=== PATIENT | female | born 1950 | race Caucasian/White ===

== ENCOUNTER → 2019-11-06 14:43 | Outpatient (CLI) | payer MEDICARE, SELFPAY ==
--- NOTE | ~2019-11-06 | MM_ITS ---
EXAMINATION: MM screening caden BI w domitila HISTORY: Screening mammogram TECHNIQUE: Craniocaudal and mediolateral oblique 3-D tomosynthesis images were obtained and synthetic 2-D images were generated. CAD analysis was submitted and interpreted. COMPARISON: Comparison to multiple prior studies sequentially, with oldest reviewed study dated 06/21. BREAST PARENCHYMAL COMPOSITION: There are scattered areas of fibroglandular density. FINDINGS: There is no evidence of suspicious mass, calcification, or architectural distortion to sugg est malignancy in either breast. There has been no suspicious interval change. IMPRESSION: 1. No mammographic evidence of malignancy. 2. Recommend routine screening mammography in one year. BI-RADS Category 1: Negative Reviewed, dictated and finalized at location D.
== END ==
PROVIDERS: PCP Internal Medicine; Visit Provider Internal Medicine
DX: Z12.31 Encounter for screening mammogram for malignant neoplasm of breast (principal)
CPT/HCPCS: 77063; 77067

== ENCOUNTER → 2020-06-09 10:27 | Outpatient (REF) | payer MEDICARE, SELFPAY | LOC: ANHLAB 10:27 | PROVIDERS: PCP Internal Medicine; Visit Provider Nurse Practitioner | DX: C44.612 Basal cell carcinoma of skin of right upper limb, including shoulder (principal) | CPT/HCPCS: 88305 ==

== ENCOUNTER 2020-10-27 14:28 | Outpatient (CLI) | payer MEDICARE, SELFPAY | END 2020-10-27 14:29 | disposition home or self-care (01) | LOC: ANHCOVIDVC 14:28 | PROVIDERS: PCP Internal Medicine | DX: Z23 Encounter for immunization (principal) | CPT/HCPCS: 0001A; 91300 ==

== ENCOUNTER 2020-11-17 14:27 | Outpatient (CLI) | payer MEDICARE, SELFPAY | END 2020-11-17 14:28 | disposition home or self-care (01) | LOC: ANHCOVIDVC 14:27 | PROVIDERS: PCP Internal Medicine | DX: Z23 Encounter for immunization (principal) | CPT/HCPCS: 0002A; 91300 ==

== ENCOUNTER → 2020-12-01 10:17 | Outpatient (REF) | payer MEDICARE, SELFPAY | LOC: ANHLAB 10:17 | PROVIDERS: PCP Internal Medicine; Visit Provider Nurse Practitioner | DX: D49.2 Neoplasm of unspecified behavior of bone, soft tissue, and skin (principal) | CPT/HCPCS: 88305 ==

== ENCOUNTER → 2021-01-04 08:08 | Outpatient (REF) | payer MEDICARE, SELFPAY | LOC: ANHLAB 08:08 | PROVIDERS: PCP Internal Medicine; Visit Provider Nurse Practitioner | DX: C44.719 Basal cell carcinoma of skin of left lower limb, including hip (principal) | CPT/HCPCS: 88305; 88331 ==

== ENCOUNTER 2021-12-13 13:49 | Outpatient (CLI) | payer MEDICARE, SELFPAY ==
--- NOTE | ~2021-12-13 | XR_ITS ---
[id number] DATE: 12/13/2021 14:19 INDICATION: Injury TECHNIQUE: 4 weightbearing views COMPARISON: None FINDINGS: There is diffuse osteopenia. There is mild plantar and posterior calcaneal enthesopathy. There is hallux valgus. Status post bunionectomy. There is organized periosteal reaction along the shafts of the third and particularly fourth metatars al bones. Old healed fracture of the proximal phalanx of fourth toe. No recent fracture or dislocation, periosteal reaction or bone destruction is noted. Moderate osteoarthritis at first metatarsophalangeal joint. Osteoarthritis at tarsal and tarsometatar ginger joints. IMPRESSION: Hallux valgus Status post bunionectomy Osteopenia Old healed fracture proximal fillings of fourth digit Probable chronic stress fractures of the third and fourth metatarsal bones Osteopenia Osteoarthritis at first metatarsophalangeal and metatarsal and tarsometatarsal joints Reviewed, dictated and finalized at Location A. Reviewed, dictated and finalized at location A.
--- NOTE | ~2021-12-13 | XR_ITS ---
XR ankle RT min 3V DATE: 12/13/2021 14:18 INDICATION: Right ankle injury, swelling TECHNIQUE: 4 views COMPARISON: None FINDINGS: There is generalized soft tissue swelling, greater medially. Diffuse osteopenia. No fracture or dislocation of the ankle or disruption of the ankle mortise. There is a K wire at the distal first metatarsal bone. Osteoarthritic changes are noted at the tarsal and tarsometatarsal area. IMPRESSION: Ankle soft tissue swelling; no fracture or dislocation of the ankle Osteoarthritic change at the tarsal and tarsometatarsal joints Postoperative change of first metatarsal Reviewed, dictated and finalized at location A.
== END 2021-12-13 13:50 | disposition home or self-care (01) ==
LOC: CHSIMG 13:51
PROVIDERS: PCP Internal Medicine; Visit Provider Internal Medicine
DX: M25.471 Effusion, right ankle (principal)
CPT/HCPCS: 73610; 73630

== ENCOUNTER 2022-01-14 09:13 | Outpatient (CLI) | payer MEDICARE, SELFPAY ==
--- NOTE | ~2022-01-14 | US_ITS ---
EXAMINATION: US venous doppler [facility] DATE: 01/14/2022 11:34 INDICATION: Lower limb lymphedema with bilateral lower limb venous reflux. TECHNIQUE: Grayscale ultrasound images without and with compression and Doppler ultrasound images of the bilateral lower extremity veins were obtained. COMPARISON: None. FINDINGS: The visualized portions of right common femoral vein, profunda (deep) femoral vein, femoral vein, pop liteal vein, posterior tibial veins, peroneal veins and greater saphenous vein outflow are patent. Right standing venous mapping: reflux seconds duration; vein size. Greater saphenous origin: 1.0 seconds; 6.0 mm. Greater saphenous high thigh:---- 1.6 seconds; 4.5 mm. Greater saphenous mid thigh:------ 0.7 seconds; 3.0 mm. Greater saphenous below knee:--- 2.4 seconds; 2.0 mm. Lesser saphenous proximally:------ 0.8 seconds; 3.7 mm. Lesser saphenous distally: 1.1 seconds; 2.6 mm. The visualized portions of left common femoral vein, profunda femoral vein, femoral vein, popliteal v ein, posterior tibial veins, peroneal veins and greater saphenous vein outflow are patent. Left standing venous mapping: reflux seconds duration; vein size. Greater saphenous origin: 1.4 seconds; 5.7 mm. Greater saphenous high thigh:---- 1.6 seconds; 3.4 mm. Greater saphenous mid thigh:------ 1.2 seconds; 2.2 mm. Greater saphenous below knee:--- 1.9 seconds; 3.5 mm. Lesser saphenous proximally:------ 0.9 seconds; 3.1 mm. Lesser saphenous distally: 2.1 seconds; 2.6 mm. IMPRESSION: 1. No deep venous thrombosis in either lower limb. 2. Mild venous reflux in the bilateral greater and lesser saphenous veins, all with durations of <2.5 seconds. Reviewed, dictated and finalized at location B.
== END 2022-01-14 09:14 | disposition home or self-care (01) ==
PROVIDERS: PCP Internal Medicine; Visit Provider Orthopaedic Surgery
DX: I89.0 Lymphedema, not elsewhere classified (principal); M79.89 Other specified soft tissue disorders
CPT/HCPCS: 93970

== ENCOUNTER → 2023-03-24 11:16 | Outpatient (CLI) | payer MEDICARE, SELFPAY ==
--- NOTE | ~2023-03-24 | US_ITS ---
Renal-Bladder ultrasound Clinical History: Abnormal findings of blood chemistry Technique: Real-time sonographic imaging of the kidneys and urinary bladder was performed. Findings: The right kidney measures 10.0 cm in length and the left kidney measures 11.2 cm. There is no hydronephrosis or renal calculus identified. Renal cortical echogenicity is probably increased. No renal mass lesion is identified. The urinary bladder is partially distended at the time of this exam. No intraluminal echoes are ident ified. No abnormal wall thickening is seen. Impression: Increased renal echogenicity suggest chronic medical renal disease. No hydronephrosis. Reviewed, dictated and finalized at location M. Impression: Increased renal echogenicity suggest chronic medical renal disease. No hydronephrosis.
== END ==
PROVIDERS: PCP Internal Medicine; Visit Provider Internal Medicine
DX: R79.89 Other specified abnormal findings of blood chemistry (principal); R93.429 Abnormal radiologic findings on diagnostic imaging of unspecified kidney
CPT/HCPCS: 76775

== ENCOUNTER 2023-08-02 16:54 | Emergency (ER) | payer MEDICARE, SELFPAY ==
--- NOTE | ~2023-08-02 | XR_ITS ---
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 RESULT: Lines, tubes, and devices: None. Lungs and pleura: Lordotic positioning with slight rotation to the right. Prominent pulmonary vessel s. No focal consolidation, pneumothorax, or effusion. Streaky bibasilar atelectasis/scar. Cardiomediastinal silhouette: Apparent mediastinal widening, presumably related to artifact of posit ioning, this is confirmed by the appearance of the superior mediastinum and aortic arch and the concu rrent CT C-spine. Other: No acute osseous or upper abdominal finding. IMPRESSION: Letter congestion, otherwise no acute cardiopulmonary process. Apparent mediastinal widening is related to positioning/technique. Reviewed, dictated and finalized at location K. ERLESS GRINDING MACHINE ADJUSTER
--- NOTE | ~2023-08-02 | CT_ITS ---
EXAMINATION: CT facial & cervical spine wo DATE: 08/02/2023 18:01 INDICATION: FALL/RIGHT FORHEAD CONTUSION/NO CERVICAL COMPLAINTS TECHNIQUE: Computed tomography (CT) of the maxillofacial region and cervical spine was performed with out intravenous contrast. Automated exposure control and iterative reconstruction technique were empl oyed. The dose-length product was 587.99 mGy-cm. COMPARISON: None FINDINGS: CERVICAL: Vertebral Body Alignment: Intact. Moderate scoliosis. Craniocervical and atlantoaxial alignment: Moderate degenerative change. Alignment intact. Osseous structures/fracture: No evidence of a lytic or blastic process in the visualized spine. No e vidence of acute fracture. Left facet fusion at C2-3 and C4-5. Cervical soft tissues: The paraspinal soft tissues planes are maintained. Degenerative changes: Moderate multilevel degenerative disc disease. No severe central canal narrowin g. Severe left neural foraminal narrowing at C3-4. FACE: Soft Tissues: Large right frontal/orbital soft tissue swelling. Facial bones: No acute fracture. Small right frontal osteoma.. Eyes: The globes are intact. The soft tissue planes of the orbits are maintained. Paranasal Sinuses: Small volume left maxillary sinus air-fluid level. Trace bilateral mastoid fluid without erosion or fracture.. Foreign Bodies: No radiopaque foreign bodies. Other Findings: None. IMPRESSION: No acute fracture or traumatic malalignment in the cervical spine. No acute facial bone fracture. Large right frontal/orbital hematoma/contusion. Minimal left maxillary mucosal hemorrhage versus acute sinusitis. Reviewed, dictated and finalized at location K. ING APPAREL FOLDER
--- NOTE | ~2023-08-02 | XR_ITS ---
EXAM: XR pelvis 1-2V DATE: 08/02/2023 18:02 HISTORY: FALL/NO HIP, PELVIS OR LOWER BACK COMPLAINTS . COMPARISON: None available. FINDINGS: Normal mineralization. No fracture or dislocation. No lytic or blastic lesion. Lumbar dege nerative disc disease. Mild degenerative changes in the bilateral hips and symphysis. 7 mm right abdo pippa calcification, may represent gallstone, nephrolith, or diverticular calcification. No erosion o r periosteal change. Soft tissues within normal limits. IMPRESSION: No acute osseous finding in the pelvis. Reviewed, dictated and finalized at location K. CTOR OF PRECLINICAL RESEARCH
--- NOTE | ~2023-08-02 | CT_ITS ---
EXAMINATION: CT brain wo con DATE: 08/02/2023 18:00 INDICATION: FALL/RIGHT FORHEAD CONTUSION . TECHNIQUE: Computed tomography (CT) of the head was performed without intravenous contrast. The mA wa s adjusted according to patient size. Iterative reconstruction technique was employed. The dose-lengt h product was 756.67 mGy-cm. COMPARISON: MR brain 08/24/2017. FINDINGS: No acute intracranial hemorrhage or extra-axial fluid collection. Streak artifact in the right fronta l lobe creates artifactual hyperdensities over the right frontal lobe. Moderate ventriculomegaly, most notably within the frontal horns, new since the prior study. No mass or herniation. No acute ischemic infarct. Unremarkable dural venous sinus attenuation. No acute osseous abnormality. Large right frontal and right orbital hematoma/contusion. Small left maxillary air-fluid level, mild bilateral mastoid air cell fluid, the remaining aerated sp aces are clear. Moderate atrophy and chronic white matter change. Atherosclerotic intracranial calcification. Bilater al lens replacements. IMPRESSION: No acute intracranial hemorrhage or large vessel infarct. Moderate ventriculomegaly, new since the prior study from 2017, probably related to interval dementia or age-related change. Correlate for clinical findings of normal pressure hydrocephalus. Large right frontal/right orbital hematoma/contusion. Small-volume air-fluid level in the left maxillary sinus may represent acute sinusitis or small volum e mucosal hemorrhage in the setting of trauma. Reviewed, dictated and finalized at location K. L FITTER IMPRESSION: No acute intracranial hemorrhage or large vessel infarct. Moderate ventriculomegaly, new since the prior study from 2017, probably relate d to interval dementia or age-related change. Correlate for clinical findings o f normal pressure hydrocephalus. Large right frontal/right orbital hematoma/contusion. Small-volume air-fluid level in the left maxillary sinus may represent acute si nusitis or small volume mucosal hemorrhage in the setting of trauma.
[2023-08-02 16:54] VITALS: BP 173/78; PULSE 69; RESP 20; TEMP 35.9; O2SAT 100
--- NOTE | 2023-08-02 17:10 | ED.FALL ---
HPI - Fall General Chief Complaint: Fall Stated Complaint: fall, head injury Source: patient and family Mode of arrival: ambulatory Limitations: no limitations History of Present Illness HPI Narrative: 72-year-old female with a history of Alzheimer's dementia, arthritis, CKD, lymphedema bilateral lower extremities, arthritis, venous stasis changes of the legs presents to the ER after -- accidental fall 4 hours ago. She fell and hit her forehead on the driveway and developed a right supraorbital hematoma. No loss of consciousness according to . Subsequently the patient went back home. She was ambulatory. Her called her primary care physician who advised the patient to come to the ER. The patient has dementia and is unable to answer questions. no focal neuro deficits. No vomiting MD complaint: fall Onset (ago): hour(s) ( 4 hours ago) Fall from: standing Fall witnessed: no Place fall occurred: home Loss of consciousness: none Prolonged down time: no Symptoms prior to fall: none Context: tripped/slipped Location of injury: head Related Data Home Medications Medication Instructions Recorded Confirmed aspirin 81 mg tablet,delayed 81 mg PO DAILY 06/09/20 07/26/23 release (Ecotrin Low Strength) Allergies Allergy/AdvReac Type Severity Reaction Status Date / Time RASHAUN Inhibitors Allergy Unknown Hives Verified 07/26/23 13:10 ibuprofen Allergy Unknown unknown Verified 07/26/23 13:10 irbesartan Allergy Unknown Unknown Verified 07/26/23 13:10 lisinopril Allergy Unknown Unknown Verified 07/26/23 13:10 olmesartan Allergy Unknown unknown Verified 07/26/23 13:10 Review of Systems Review of Systems: ROS unobtainable: Yes unobtainable due to mental status PMFSH Past Medical History Medical History Abnormal finding of blood chemistry Agatston coronary artery calcium score between 200 and 399 Alzheimer's disease Bleeding gums BMI 30.0-30.9,adult BMI 31.0-31.9,adult BMI 32.0-32.9,adult BMI 33.0-33.9,adult BMI 34.0-34.9,adult BMI 35.0-35.9,adult BMI 36.0-36.9,adult Bradycardia Chest pain CKD (chronic kidney disease) Colon cancer screening Dementia Effusion of right knee Encounter for Medicare annual wellness exam Encounter for routine adult health examination with abnormal findings Encounter for routine adult health examination without abnormal findings Fall Fracture of right ankle Lymphedema due to venous insufficiency Mass of right hand Mild depression Onychomycosis Osteoarthritis of right knee Other specified abnormal findings of blood chemistry Pedal edema Rash Rhinorrhea Right shoulder pain Venous stasis dermatitis Weakness of both lower extremities Surgical History Surgical History History of eyelid surgery 2014 History of foot surgery 2018 Hx of cataract surgery S/P YAG capsulotomy, left Status post left foot surgery Family History Family History Mother Family history of lung cancer Patient's mother is in good health Father Family history of emphysema Family history of aortic aneurysm Other Acute myocardial infarction Hypertension Social History Social History Smoking status: Former smoker Smoking end date: 08/21/07 Alcohol intake: never Substance use: never Substance use type: does not use Lack of Transportation: No Lack of Food: Never True Current Housing: I Have Housing Concerned About Future Housing: No Difficulty Paying Gas/Electric Bills: No Difficulty Paying for Meds: No Currently Unemployed: No Education: Grade School Difficulty w/ Childcare or Family Care: No Living arrangements: with family Gender identity (if verbalized by the patient): Female Exam Const: General: healthy appearing and no acute
[2023-08-02] MEDS: TETANUS,DIPHTHERIA,AC PERTUSSIS ADULT 0.5 ML (ADACEL) IM (17:59)
[2023-08-02 18:37] VITALS: BP 138/74; PULSE 68; RESP 20; TEMP 36.9; O2SAT 98
== END 2023-08-02 18:51 | disposition home or self-care (01) ==
PROVIDERS: Emergency Provider Internal Medicine Critical Care Medicine; PCP Internal Medicine
DX: G93.89 Other specified disorders of brain (principal); S00.03XA Contusion of scalp, initial encounter; G30.9 Alzheimer's disease, unspecified; F02.80 Dementia in other diseases classified elsewhere, unspecified severity, without behavioral disturbance, psychotic disturbance, mood disturbance, and anxiety; N18.9 Chronic kidney disease, unspecified; Z87.891 Personal history of nicotine dependence; Z23 Encounter for immunization; W01.0XXA Fall on same level from slipping, tripping and stumbling without subsequent striking against object, initial encounter; Y92.009 Unspecified place in unspecified non-institutional (private) residence as the place of occurrence of the external cause
CPT/HCPCS: 70450; 70486; 71045; 72125; 72170; 90471; 90715; 99284

== ENCOUNTER 2023-09-07 15:29 | Outpatient (CLI) | payer MEDICARE, SELFPAY ==
--- NOTE | ~2023-09-07 | MR_ITS ---
EXAMINATION: MR brain/brain stem wo/w con DATE: 09/07/2023 17:20 INDICATION: Amnesia post fall one month prior TECHNIQUE: Magnetic resonance imaging (MRI) of the brain and brainstem was performed without and with 18 mL Multihance intravenous contrast. Sequences included sagittal and axial T1-weighted SE, axial d iffusion-weighted FS SE, axial T2*-weighted GRE, axial 3D SWAN, axial T2-weighted FLAIR, and axial T2 -weighted FSE. Postcontrast axial and coronal T1-weighted SE was obtained. Apparent diffusion coeffic ient (ADC) maps were created. COMPARISON: Head CT dated 08/02/2023 and brain MR dated 08/24/2017 FINDINGS: Significant interval decrease in size of a scalp hematoma in the right supraorbital region. There are no areas of restricted diffusion to suggest acute infarction. No intracranial hemorrhage or abnormal intracranial mass lesion. There are scattered areas of nonspecific increased T2-weighted signal inte nsity in the cerebral white matter, predominantly involving the deep and periventricular white matter . There are no intraparenchymal signal abnormalities seen on the other pulse sequences. Symmetric pro minence of the sulci and ventricles consistent with moderate age-appropriate diffuse cerebral volume loss. There are no abnormal extra-axial fluid collections. Flow voids are seen in the cerebral arteri es on the T2-weighted sequences consistent with their expected patency. Changes of bilateral intraocu lar lens replacement. Visualized orbits and soft tissues are unremarkable. Chronic small bilateral ma stoid effusions. There are no areas of abnormal enhancement on the post contrast images. IMPRESSION: 1. No acute intracranial process or abnormally enhancing brain lesions. 2. Age-related changes including moderate diffuse volume loss and scattered foci of periventricular p redominant white matter T2 hyperintensity consistent with chronic small vessel ischemic disease. 3. Interval decrease in size of a right supraorbital scalp hematoma. Reviewed, dictated and finalized at location A. RAL RESOURCES TECHNICIAN IMPRESSION: 1. No acute intracranial process or abnormally enhancing brain lesions. 2. Age-related changes including moderate diffuse volume loss and scattered foc i of periventricular predominant white matter T2 hyperintensity consistent with chronic small vessel ischemic disease. 3. Interval decrease in size of a right supraorbital scalp hematoma.
== END 2023-09-07 15:30 | disposition home or self-care (01) ==
PROVIDERS: PCP Internal Medicine; Visit Provider Internal Medicine
DX: R90.89 Other abnormal findings on diagnostic imaging of central nervous system (principal); R41.3 Other amnesia
CPT/HCPCS: 70553; A9577

== ENCOUNTER 2023-09-17 14:00 | Emergency (ER) | payer MEDICARE, SELFPAY ==
[2023-09-17] VITALS (21 sets, daily range): BP systolic 85–141; BP diastolic 52–70; PULSE 67–108; RESP 12–20; TEMP 35.9–36.9; O2SAT 92–100
--- NOTE | ~2023-09-17 | XR_ITS ---
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 RESULT: Lines, tubes, and devices: None. Lungs and pleura: Leftward rotation in the frontal view. Mild diffuse reticular opacities. Streaky bi basilar opacities, likely scar/atelectasis. Senescent changes. Cardiomediastinal silhouette: Stable. Other: No acute osseous or upper abdominal finding. IMPRESSION: Mild interstitial edema. Reviewed, dictated and finalized at location K. TER STATION OPERATOR IMPRESSION: Mild interstitial edema.
--- NOTE | ~2023-09-17 | CT_ITS ---
EXAMINATION: CT brain wo con DATE: 09/17/2023 15:50 INDICATION: weakness . TECHNIQUE: Computed tomography (CT) of the head was performed without intravenous contrast. The mA wa s adjusted according to patient size. Iterative reconstruction technique was employed. The dose-lengt h product was 681.00 mGy-cm. COMPARISON: None. FINDINGS: No acute intracranial hemorrhage or extra-axial fluid collection. No hydrocephalus, mass, or herniation. No acute ischemic infarct. Unremarkable dural venous sinus attenuation. No acute osseous abnormality. Small right frontal contusion. Minimal bilateral mastoid fluid, the remaining aerated spaces are clear. Moderate atrophy and chronic white matter change. Atherosclerotic intracranial calcification. Bilater al lens replacements. IMPRESSION: No acute intracranial process. Reviewed, dictated and finalized at location K. NICAL SUPPORT CONSULTANT
--- NOTE | 2023-09-17 14:14 | ECG_ITS ---
Measurements Intervals [place] Rate: 86 P: 82 CO: 100 QRS: 15 QRSD: 110 T: 40 QT: 383 QTc: 460 Interpretive Statements SINUS RHYTHM WITH SHORT CO INTERVAL DELAYED PRECORDIAL R/S TRANSITION NONSPECIFIC T-WAVE ABNORMALITY- DIFFUSE LEADS BASELINE ARTIFACT- I, II, III, AVR, AVL, AVF, V1-V6 BORDERLINE ECG NO PREVIOUS ECG AVAILABLE FOR COMPARISON Electronically Signed On 09-17-2023 19:31:16 PHARMACY BILLING ADJUDICATOR by Arjun Mendes D.O.
--- NOTE | 2023-09-17 14:48 | ED.WEAKNESS ---
HPI - Weakness General Chief complaint: Weakness Stated complaint: unsteady on feet; decreased intake and output Time Seen by Provider: 09/17/23 14:10 Source: patient Mode of arrival: ambulatory Limitations: no limitations History of Present Illness HPI Narrative: Patient is a 72-year-old female with baseline dementia here with worst dementia /delirium over the past few days. They feel she is dehydrated. MD Complaint: generalized weakness Onset (ago): day(s) (3) Duration: constant Location: generalized Migration: none Severity: moderate Severity scale (1-10): 4 Relieving factors: none Exacerbating factors: none Associated symptoms: denies other symptoms Related Data Home Medications Medication Instructions Recorded Confirmed aspirin 81 mg tablet,delayed 81 mg PO DAILY 06/09/20 07/26/23 release (Ecotrin Low Strength) Allergies Allergy/AdvReac Type Severity Reaction Status Date / Time RASHAUN Inhibitors Allergy Unknown Hives Verified 09/05/23 11:05 ibuprofen Allergy Unknown unknown Verified 09/05/23 11:05 irbesartan Allergy Unknown Unknown Verified 09/05/23 11:05 lisinopril Allergy Unknown Unknown Verified 09/05/23 11:05 olmesartan Allergy Unknown unknown Verified 09/05/23 11:05 Review of Systems Review of Systems: All systems reviewed & are unremarkable except as noted in HPI and below Constitutional: Constitutional: Reports no additional constitutional complaints Eyes: Eyes: Reports no additional eye complaints ENT: Reports system reviewed and no additional complaints, except as documented Cardiovascular: Cardiovascular: Reports no additional cardiovascular complaints Respiratory: Respiratory: Reports no additional respiratory complaints Gastrointestinal: Gastrointestinal: Reports no additional gastrointestinal complaints Genitourinary: Genitourinary: Reports no additional female genitourinary complaints Musculoskeletal: Musculoskeletal: Reports no additional musculoskeletal complaints Integumentary/Breasts: Skin/Breast: Reports system reviewed and no additional complaints, except as docu Neurologic: Reports system reviewed and no additional complaints, except as documented Psychiatric: Psychiatric: Reports no additional psychiatric complaints Endocrine: Endocrine: Reports no additional endocrine complaints Hematologic/Lymphatic: Hematologic/Lymphatic: Reports no additional hematologic/lymphatic complaints Allergic/Immunologic: Allergic/Immunologic: Reports no additional allergic/immunologic complaints PMFSH Past Medical History Medical History Abnormal finding of blood chemistry Agatston coronary artery calcium score between 200 and 399 Alzheimer's disease Bleeding gums BMI 30.0-30.9,adult BMI 31.0-31.9,adult BMI 32.0-32.9,adult BMI 33.0-33.9,adult BMI 34.0-34.9,adult BMI 35.0-35.9,adult BMI 36.0-36.9,adult Bradycardia Chest pain CKD (chronic kidney disease) Colon cancer screening Dementia Effusion of right knee Encounter for Medicare annual wellness exam Encounter for routine adult health examination with abnormal findings Encounter for routine adult health examination without abnormal findings Fall Fracture of right ankle Lymphedema due to venous insufficiency Mass of right hand Mild depression Onychomycosis Osteoarthritis of right knee Other specified abnormal findings of blood chemistry Pedal edema Rash Rhinorrhea Right shoulder pain Venous stasis dermatitis Weakness of both lower extremities Surgical History Surgical History History of eyelid surgery 2013 History of foot surgery 2018 Hx of cataract surgery S/P YAG capsulotomy, left Status post left foot surgery Family History Family History Mother Family history of lung cancer Patient's mother is in good health Father Family history of emphysema F
[2023-09-17 15:11] LABS: Basophils Absolute Auto 0.04 K/mm3 (0.00-0.10); Basophils Percent Auto 0.6 % (0.0-1.0); Eosinophils Absolute Auto 0.03 K/mm3 (0.02-0.50); Eosinophils Percent Auto 0.4 % (1.0-6.0); Hematocrit 40.6 % (35.0-42.0); Hemoglobin 11.8 g/dL (11.7-13.8); Immature Granulocyte Absolute 0.03 K/mm3 (0.00-0.00); Immature Granulocyte Percent A 0.4 % (0.0-0.0); Lymphocytes Absolute Auto 0.89 K/mm3 (1.10-4.50); Mean Corpuscular HGB Conc 29.1 g/dL (32.0-36.0); Mean Corpuscular Hemoglobin 28.9 pg (27.0-31.0); Mean Corpuscular Volume 99.5 fL (78.0-102.0); Mean Platelet Volume 9.5 fl (9.2-11.8); Monocytes Absolute Auto 0.52 K/mm3 (0.10-0.90); Monocytes Percent Auto 7.6 % (2.0-11.0); Neutrophils Absolute Auto 5.3 K/mm3 (1.7-7.2); Platelet Count Result 189 K/mm3 (150-420); Red Blood Count 4.08 M/mm3 (4.20-5.40); Red Cell Distribution Width 13.4 % (11.6-14.4); White Blood Count 6.8 K/mm3 (4.8-10.8)
[2023-09-17 15:30] LABS: Alanine Aminotransferase 16 U/L (14-59); Albumin Level 2.8 g/dL (3.4-5.0); Alkaline Phosphatase 85 U/L (46-116); Anion Gap 11 mmol/L (8-16); Aspartate Amino Transferase 17 U/L (15-37); Bilirubin,Total 0.7 mg/dL (0.00-1.00); Blood Urea Nitrogen 17 mg/dL (7-18); Carbon Dioxide 26 mmol/L (21-32); Chloride 105 mmol/L (98-108); Estimated Glomerular Filt Rate 33; Glucose 104 mg/dL (70-99); Magnesium 1.9 mg/dL (1.8-2.4); Osmolality Calculated 295 mOsm/kg (285-295); Potassium 3.5 mmol/L (3.5-5.1); Sodium 142 mmol/L (136-145); Total Protein 6.4 g/dL (6.4-8.2); Troponin I 18.7 ng/L (0.00-60.4)
[2023-09-17 15:35] LABS: Lactic Acid Reflex 1.4 mmol/L (0.4-2.0)
[2023-09-17] MEDS: SODIUM CHLORIDE 0.9% IV 1,000 ML 999 ML IV CONT (16:00)
[2023-09-17 16:26] LABS: NT Pro B Type Natriuretic Pept 304 pg/mL (0-125)
[2023-09-17 16:43] LABS: SARS-CoV-2 RNA PCR Negative (Negative)
[2023-09-17 16:44] LABS: Influenza A QL RT-PCR Negative (Negative); Influenza B QL RT-PCR Negative (Negative); RSV RNA, RT-PCR Negative (Negative)
[2023-09-17 17:44] LABS: Bilirubin Urine Negative (Negative); Blood Urine Negative (Negative); Color Urine Yellow (Yellow); Glucose Urine UA Negative (Negative); Ketones Urine Negative (Negative); Leukocyte Esterase Ur Negative LEU/UL (Negative); Nitrate Urine Negative (Negative); Protein Urine Negative (Negative); Specific Grav Ur 1.025 (1.010-1.020)
[2023-09-17 17:46] LABS: Add Urine Microscopic? NO; Appearance Urine Slightly Cloudy (Clear)
== END 2023-09-17 18:23 | disposition home or self-care (01) ==
PROVIDERS: Emergency Provider Emergency Medicine; PCP Internal Medicine
DX: N17.9 Acute kidney failure, unspecified (principal); E86.0 Dehydration; R53.1 Weakness; G30.9 Alzheimer's disease, unspecified; F02.80 Dementia in other diseases classified elsewhere, unspecified severity, without behavioral disturbance, psychotic disturbance, mood disturbance, and anxiety; N18.9 Chronic kidney disease, unspecified; F32.A Depression, unspecified; Z87.891 Personal history of nicotine dependence; Z79.82 Long term (current) use of aspirin; Z20.822 Contact with and (suspected) exposure to COVID-19
CPT/HCPCS: 36415; 70450; 71046; 80053; 81003; 83605; 83735; 83880; 84484; 85025; 87637; 93005; 99284; J7030

== ENCOUNTER 2023-12-07 01:21 | Day surgery (SDC) | payer MEDICARE, SELFPAY ==
[2023-11-30 13:21] VITALS: BMI 31.3
--- NOTE | 2023-11-30 13:54 | PC.NURSE ---
Report to the Outpatient Waiting Room, entrance under the green pavilion located off [facility], at time __6:00AM on date __12/07/23 . Planned Procedure Time: __7:30AM . Time changes happen often and if your time is changed the preop area will call you the afternoon before. - You and your visitor will be asked to self-screen and do not enter if you have any COVID symptoms. - A mask is optional within the hospital at this time. Patients may have clear liquids (water, carbonated beverages, clear teas, apple juice) until 3 hours prior to surgery with a maximum of 20 ounces. - No food from midnight until time of surgery. Take the following medications with a SIP of water the morning of surgery: __HYDRALAZINE DO NOT STOP ANY OF YOUR OTHER PRESCRIPTION MEDICATIONS PRIOR TO SURGERY ?EXCEPT THE FOLLOWING Medications to discontinue per physician ___HOLD ALL VITAMINS/SUPPLEMENTS 3 DAYS PRE-OP Date to take last dose____12/03/23 Please no make-up, nail malay, hairspray, perfume, deodorant, or body powder the day of surgery. No jewelry (including any body piercings) or valuables the day of surgery, leave them at home. Please take a shower or bath the night before, or the morning of, surgery with an antibacterial soap. Wear comfortable, loose fitting clothing. Children are encouraged to wear pajamas. - Jewelry must be removed prior to entering the operating room. Rings and piercings that are not removed may be cut off. - The hospital will not accept responsibility for valuables. - Please leave all valuables, including medications, at home the day of surgery. If you are going home after surgery, a licensed vacuum truck driver must drive you home. - NO public transportation without another adult if you receive anesthesia. - We recommend that an adult stay with you for 24 hours following discharge. - We also recommend that you do not drive, make important decision, drink alcoholic beverages, or take any drugs that were not prescribed by your health care provider for at least 24 hours after your discharge time. For Pediatric surgeries, we recommend two adults accompany the child home. Follow any additional instructions given to you from your surgeon. If you or anyone in your household have experienced Covid symptoms in the past week, please notify your surgeon or the nurse liaison at the phone number below for possible testing. Telephone instructions given to ___PATIENT and asked if any additional questions and then verbalized understanding. Patient advised to call surgeon office or pre surgery nurse liaison [phone] if any additional questions.
[2023-12-07] MEDS: LACTATED RINGERS 1,000 ML 30 ML IV CONT (06:30)
--- NOTE | 2023-12-07 07:08 | P.PNAN_ITS ---
Anes - Initial Pre Proc Eval Procedure: Operation Date: 12/07/23 07:30 Proposed Procedures p Excision Squamous Cell Carcinoma Left Dorsal Hand with Frozen Section and Full Thickness Skin Graft - Antonio Garibay MD Date/Time: 12/07/23 07:08 Surgeon: Antonio Garibay MD Pre Op Diagnosis: sq cell CA insitu left dorsal hand Patient Data Age: 72 Gender: F Height: 1.68 m Weight: 88 kg Allergies Allergy/AdvReac Type Severity Reaction Status Date / Time RASHAUN Inhibitors Allergy Unknown Hives Verified 11/30/23 13:14 ibuprofen Allergy Unknown unknown Verified 11/30/23 13:14 irbesartan Allergy Unknown Unknown Verified 11/30/23 13:14 lisinopril Allergy Unknown Hives Verified 11/30/23 13:14 olmesartan Allergy Unknown unknown Verified 11/30/23 13:14 Home Medications Medication Instructions Recorded Confirmed Type aspirin 81 mg tablet,delayed 81 mg PO DAILY 06/09/20 11/30/23 History release (Ecotrin Low Strength) calcium carbonate 600 mg-vitamin 1 tablet PO TID #90 tabs 02/07/22 11/30/23 Rx D3 20 mcg (800 unit) chewable tablet (Caltrate 600 plus D) rosuvastatin 20 mg tablet See Rx Instructions .Route 06/05/23 11/30/23 Rx .COMPLEX #90 tabs hydralazine 50 mg tablet 50 mg PO TID #270 tabs 07/26/23 11/30/23 Rx Bed Rail #1 ea 09/25/23 11/03/23 Rx Gait Belt #1 ea 09/25/23 11/03/23 Rx Shower Seat Cushion #1 ea 09/25/23 11/03/23 Rx Toilet Sear Riser with Handles #1 ea 09/25/23 11/03/23 Rx cyanocobalamin (vitamin B-12) See Rx Instructions .Route 11/28/23 11/30/23 Rx 1,000 mcg/mL injection solution .COMPLEX #6 mL losartan 100 mg tablet 100 mg PO HS 11/30/23 11/30/23 History memantine 10 mg tablet 10 mg PO BID 11/30/23 11/30/23 History omega-3 fatty acids 1,000 mg 1,200 mg PO TID 04/11/24 04/11/24 History capsule Patient hx anesthesia problems: none Family hx anesthesia problems: none Results Review: All pre-operative results and documents have been reviewed as part of the pre- operative evaluation. [facility] Past Medical History Medical History (Updated 11/02/23 @ 15:45 by Ivory Newton MA) Abnormal finding of blood chemistry Agatston coronary artery calcium score between 200 and 399 Alzheimer's disease Bleeding gums BMI 30.0-30.9,adult BMI 31.0-31.9,adult BMI 32.0-32.9,adult BMI 33.0-33.9,adult BMI 34.0-34.9,adult BMI 35.0-35.9,adult BMI 36.0-36.9,adult Bradycardia Chest pain CKD (chronic kidney disease) Colon cancer screening Dementia Effusion of right knee Encounter for Medicare annual wellness exam Encounter for routine adult health examination with abnormal findings Encounter for routine adult health examination without abnormal findings Fall Fracture of right ankle Lymphedema due to venous insufficiency Mass of right hand Mild depression Onychomycosis Osteoarthritis of right knee Other specified abnormal findings of blood chemistry Pedal edema Rash Rhinorrhea Right shoulder pain Venous stasis dermatitis Weakness of both lower extremities Surgical History Surgical History History of eyelid surgery 2014 History of foot surgery 2018 Hx of cataract surgery S/P YAG capsulotomy, left Status post left foot surgery Family History Family History Mother Family history of lung cancer Patient's mother is in good health Father Family history of emphysema Family history of aortic aneurysm Other Acute myocardial infarction Hypertension Social History Social History Smoking status: Former smoker Tobacco type: cigarettes Smoking end date: 02/18/98 Additional smoking assessment comments: 1 PACK/WEEK X 12 YEARS Alcohol intake: never Substance use: never Substance use type: does not use Lack of Transportation: No Lack of Food: Never True Current Housing: I Have Housing Concerned About Future Housing: No Difficulty Paying Gas/Electric Bills: No Difficulty Paying for Meds: No Currently Unemployed: No Education: Grade School Difficulty w/ Childcare or Family Care: No Living arrangements: with family Additional living arrangements comments: HUSB Gender identity (if verbalized by the patient): Female Spiritual care concerns: No Anes - Eval Final PreProcedure Day of Procedure 12/07/23 07:08 Patient weight: normal Heart: regular rate and rhythm Lungs: clear to auscultation Airway: Mallampati scale class III Neurological: alert and oriented Last oral intake: >/= 8 hours ASA classification: III Emergent: no Anesthetic plan: proceed Anesthesia type and monitoring: general GIVS and standard monitoring Results Review: All pre-operative results and documents have been reviewed as part of the pre- operative evaluation. Informed Consent: The patient's anesthetic plan and its attendant risks and benefits were discussed with the patient/family/POA. Questions were solicited and answers provided to the satisfaction of the patient/family/POA.
--- NOTE | 2023-12-07 07:17 | WPDHPUPDATE1 ---
History and Physical Update Update Date/Time: 12/07/23 07:17 History and Physical has been reviewed, including an updated exam of the patient. There are NO changes in the patient's condition. Risks, benefits, and alternatives have been discussed and questions answered. Patient agrees to proceed with procedure.
[2023-12-07] MEDS: LIDO 1%/EPINEPHRINE 1:100,000 50 ML VIAL 20 ML INFILTRATE (07:28)
[2023-12-07 07:46] VITALS: BP 125/58; PULSE 80; RESP 16; TEMP 36.6; O2SAT 100
[2023-12-07 09:50] VITALS: BP 149/68; PULSE 60; RESP 14; O2SAT 100
[2023-12-07 10:20] VITALS: BP 126/66; PULSE 59; RESP 14; O2SAT 97
--- NOTE | 2023-12-07 10:27 | W.PM.PROC2 ---
Procedure Note - Detailed Date of Procedure 12/07/23 Pre-op Diagnosis sq cell CA insitu left dorsal hand Post-op Diagnosis Other (Squamous cell carcinoma of the left dorsal hand) Procedure Performed 5 cm excision of squamous cell carcinoma of the left dorsal hand with frozen section and full-thickness skin graft reconstruction 25 sq cm. 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 Findings Squamous cell carcinoma Description of Procedure The site on the left dorsal hand was marked with the 's consent in the holding area. He has power of litigation attorney associate. Site on the volar forearm was also marked for donor skin. She was then rolled to the operating room placed supine on the operating table. She was given IV sedation without difficulty. Left upper extremity was prepped and draped in usual fashion. A time-out was held and confirmed. The site of the tumor was infiltrated with 1% lidocaine with epinephrine. An estimated area for donor site was also anesthetized with 1% lidocaine with epinephrine. The tourniquet was not utilized. There was minimal bleeding. The incision was made around the mass and taken off at the level of the deep subcutaneous tissue or peritenon. The specimen was marked with a suture for orientation and sent for frozen section. Pathologist revealed all margins were free and the tumor is squamous cell carcinoma. The graft was harvested from the left volar forearm. The redundant fat was excised to allow direct closure of the donor site. This was done with interrupted superficial fascia and intradermal 4-0 Monocryl sutures. The skin was closed with interrupted 5 0 chromic sutures. The graft was slightly defatted and inset with interrupted and running 5 0 chromic sutures. Antibiotic ointment and Xeroform were applied to the donor site of Tegaderm was applied over that. At the graft Mepilex Ag was applied to fit. 4 x 4 gauze and Coban were applied over that. Bulky cotton wadding were applied and forearm splint applied over the entire forearm and proximal hand. With the cast had dried it was bivalved with a soft and re-taped. She is discharged from the operating room stable condition. She is sent home with a prescription to continue some doxycycline she had been taking. A prescription for tramadol 8. Was also sent. Estimated Blood Loss 10 Drains No Packing No Pathology Yes Complications No immediate complications Condition Stable Disposition Same day
[2023-12-07 10:50] VITALS: BP 141/71; PULSE 59; RESP 16
== END 2023-12-07 11:08 | disposition home or self-care (01) ==
PROVIDERS: PCP Internal Medicine; Visit Provider Plastic Surgery
PROC: (CPT 11626; principal; 2023-12-07 07:30)
DX: C44.629 Squamous cell carcinoma of skin of left upper limb, including shoulder (principal); Z79.82 Long term (current) use of aspirin; G30.9 Alzheimer's disease, unspecified; F02.80 Dementia in other diseases classified elsewhere, unspecified severity, without behavioral disturbance, psychotic disturbance, mood disturbance, and anxiety; N18.9 Chronic kidney disease, unspecified; Z87.891 Personal history of nicotine dependence
CPT/HCPCS: 11626; 15240; 15241; 88305; 88331; A9270; J2250; J2405; J2704; J3010; J7120

== ENCOUNTER 2025-01-17 20:34 | Emergency (ER) | payer MEDICARE, SELFPAY ==
--- NOTE | ~2025-01-17 | XR_ITS ---
XR wrist RT min 3V Ordering provider: Terry Pizarro MD History: . pain/swelling,ERRYTHEMA,?INJURY-PT HAS DEMENTIA . Comparison: None FINDINGS: BONES: No acute fracture or dislocation. No definite scaphoid fracture. Osteopenia of the bones. JOINT SPACES: Normal. SOFT TISSUES: Normal. IMPRESSION: No acute osseous abnormality right wrist. Reviewed, dictated and finalized at location A.
[2025-01-17 20:34] VITALS: BP 161/81; PULSE 81; RESP 18; TEMP 36.7; O2SAT 93
--- OUTSIDE RECORDS SUMMARY | 2025-01-17 20:36 | XMS_ITS | Clinical Summary ---
Author Organization [facility] [address] Address [address] [place] [address] Care Team Providers Care Environmental Permitting Specialist Name Role Phone Luke Powers MD Primary Care Provider [phone] Allergies Active Allergy Reactions Criticality Noted Date Comments Lisinopril Rash Medium 07/01/2020 Social History Tobacco Use Types Packs/Day Years Used Date Smoking Tobacco: Never Assessed Personal Safety Answer Date Recorded Getting School Help Needed Not on file 11/03 Comments Unknown Sex and Gender Information Value Date Recorded Sex Assigned at Not on file 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 MEDICARE ADVANTAGE Care Teams Environmental Permitting Specialist Relationship Specialty Start Date End Date Luke Powers MD [address] [facility] [facility] [address] [facility] [address] [place] [address] PCP - General Internal Medicine 06/23/20
--- OUTSIDE RECORDS SUMMARY | 2025-01-17 20:36 | XMS_ITS | Continuity of Care Document ---
Author Organization [facility] Address [id number] [place] [address] [address] [place] [address] Phone Care Team Providers Care Wastewater Analyst Name Role Phone Stephanie ABERNATHY, Chandu Unavailable [...] Provider Providers Copied on Encounter [facility], [address] [facility] [address], [place], [place], [id number], [place] tel:[phone] [facility] No Information 8 Stephanie Birminghaml. [address], [address], [place], [id number], . tel:[phone] Referring Provider: Chandu Haganariana , [address], [place], [address]. tel:[phone] [facility], [address] [place] [address], [id number], tel:[phone] [facility] [place] No Information 8 Stephanie Birminghaml. [address], [address], [place], [address], [place]. tel:[phone] Referring Provider: Chandu Brown , [address] [place] [address], [address]. tel:[phone] [facility], [address] [place] [address], [id number], tel:[phone] [facility] No Information 8 Stephanie Burtonhil. [address], [address], [address], [place]. tel:[phone] Referring Provider: Chandu Bentleyariana , [address], [place], [address]. tel:[phone] OFFICE/OUTPA TIENT VISIT, [facility], [address] [place] [address], [id number], tel:[phone] O[facility] CONSULT A[facility] PAULA MANUEL Cataracts (chief complaint) Age-related nuclear cataract, bilateralBila teral keratoconjunc tivitis sicca, not specified as Sjogren'sNone xudative age-related macular degeneration, bilateral, early dry stageMyopia, bilateralPost erior subcapsular polar age-related cataract, bilateralVitr eous degeneration, bilateral 8 Krariana Burtonhil. [address], [place], [place], [id number], [place]. tel:[phone] Referring Provider: Chandu Brown , [address], [place], [address]. tel:[phone] [facility], [address] [place] [address], [place], [place], [id number], tel:[phone] OPH CONSULT ANA PAULA MANUEL Ptosis of eyelid, unspecifiedDe rmatochalasis Senile nuclear sclerosis [address] [place]. [address] [place] [address], [address], [place], [address], [place]. tel:[phone] [facility], [address] [place] [address], [id number], tel:[phone] [facility]EL No Information 3 [place]. [address] [place] [address], [address], [place], [address], . tel:[phone] Referring Provider: Jaya Dumont, [address] [place] [address] [address] [facility], [place], [address]. tel:[phone] Family History Family Member Type Diagnosis Age At Onset No Information Payers Payer name Insurance type Covered alliance party ID Authoriza tion(s) No Information Social [...]
--- OUTSIDE RECORDS SUMMARY | 2025-01-17 20:36 | XMS_ITS | Continuity of Care Document ---
Author Organization [facility] Address [address] [place] [address] [place] [address] Phone Care Team Providers Care Ice Resurfacing Machine Operators Name Role Phone Macario PT, MS, Nick [...] Diagnoses Date Provider Providers Copied on [facility]counter [facility], [address] [address], [place], [place], [id number], [place] tel:[phone] [place] No Information 5 Macario Romero. [address], [address], [place], [address], [place]. tel:[phone] [facility] [address], [place], [place], [id number], [place] tel: [phone] [place] No Information 5 Macario Nick. [address] [facility] [address], [address], [place], [address], [place]. tel: [phone] [facility] [address], [place], [place], [address], [place] tel: [phone] [place] No Information 5 Macario Nick. [address] [place] [address], [address], [place], [address], [place]. tel: [phone] [facility] [address], [place], [place], [id number], [place] tel: [phone] [place] No Information 5 Macario Nick. [address] [place] [address], [address], [place], [address], [place]. tel: [phone] [facility] [address], [place], [place], [id number], [place] tel:[phone] [place] No Information 5 Macario Nick. [address] [place] [address], [address], [place], [address], [place]. tel: [phone] [facility] [address], [place], [place], [address], [place] tel: [phone] [place] No Information 5 Macario Nick. [address] [place] [address], [address], [place], [address], [place]. tel: [phone] [facility], [place], [place], [id number], [place] tel:[phone] [place] No Information 5 Macario Nick. [address] [place] [address], [address], [place], [address], [place]. tel: [facility], [place], [place], [id number], [place] tel:[phone] [place] No Information 4- 5 Macario Nick. [address] [place] [address], [address], [place], [place], [facility], [place]. tel: [phone] [facility] [address], [place], [place], [id number], [place] tel: [phone] [place] No Information 3 5 Macario Nick. [address] [place] [address], [address], [place], [place], [facility], [place]. tel: [phone] [facility] [address], [place], [place], [id number], tel:[phone] [place] No Information 0-201 5 Macario Nick. [address] [place] [address], [address], [place], [place], [facility], [place]. tel: [phone] [facility] [address], [place], [place], [id number], [place] tel:[phone] [place] No Information 7 5 Macario Nick. [address] [place] [address], [address], [place], [place], [facility], [place]. tel: [phone] [facility] [address], [place], [place], [id number], [place] tel:[phone] [place] No Information 5201 5 Macario Nick. [address] [place] [address], [address], [place], [place], [facility], [place]. tel: [phone] [facility] [address], [place], [place], [id number], [place] tel:[phone] [place] Pain in joint involving ankle and foot 3-201 5 Macario Nick. [address] [place] [address], [address], [place], [place], [facility], [place]. tel: [phone] Family History Family Member Type Diagnosis Age At Onset No Information Payers Payer name Insurance type Covered republican ID Authoriza tion(s) [place] [id number] [id number] [facility] [id number] Social History Type Description Quantity Date Captured [...]
--- OUTSIDE RECORDS SUMMARY | 2025-01-17 20:36 | XMS_ITS | Referral Summary ---
Author Organization [facility] [address] Address [address] [place] [address] Care Team Providers Care Iso Coordinator Name Role Phone Luke Powers MD Primary Care Provider [phone] Allergies Active Allergy Reactions Criticality Noted Date Comments Lisinopril Rash Medium 07/01/2020 Social History Tobacco Use Types Packs/Day Years Used Date Smoking Tobacco: Never Assessed Personal Safety Answer Date Recorded Getting School Help Needed Not on file 11/03 Comments Unknown Sex and Gender Information Value Date Recorded Sex Assigned at Not on file 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 [address] [place] [address] PCP - General Internal Medicine 06/23/20
--- NOTE | 2025-01-17 20:42 | ED.UPPEXIN ---
HPI - Extremity Injury (Upper) General Chief Complaint: Extremity Injury, Upper Stated Complaint: R wrist Injury Time Seen by Provider: 01/17/25 20:35 Source: family Mode of arrival: wheelchair Limitations: dementia History of Present Illness HPI narrative: Patient is a 74-year-old female with severe dementia here with right wrist pain and swelling for the past day. She is full care at home and requires family to move her around by using her arms at times. No definite injury has occurred but they said possibly an accident has occurred while moving her around. No concerns for abuse. MD complaint: injury to: right and wrist Onset (ago): day(s) ( One) Other injuries: none Place: home Severity: mild Severity scale (1-10): 3 Relieving factors: immobilization Exacerbating factors: movement of extremity Context: other ( no definite injury) Associated symptoms: denies other symptoms Treatments prior to arrival: other ( none) Related Data Home Medications ?Medication ?Instructions ?Recorded ?Confirmed ?Last Taken ?Type aspirin 81 mg tablet,delayed 81 mg PO DAILY 06/09/20 01/09/25 Unknown History release (Ecotrin Low Strength) omega-3 fatty acids 1,000 mg 1,200 mg PO TID 11/30/23 01/09/25 Unknown History capsule SuperBeets BYMOUTH 01/09/25 01/09/25 Unknown History terbinafine HCl 250 mg tablet 250 mg PO .10 days month 01/09/25 01/09/25 Unknown History Allergies Allergy/AdvReac Type Severity Reaction Status Date / Time RASHAUN Inhibitors Allergy Unknown Hives Verified 01/17/25 20:48 ibuprofen Allergy Unknown unknown Verified 01/17/25 20:48 irbesartan Allergy Unknown Unknown Verified 01/17/25 20:48 lisinopril Allergy Unknown Hives Verified 01/17/25 20:48 olmesartan Allergy Unknown unknown Verified 01/17/25 20:48 Review of Systems Review of Systems: All systems reviewed & are unremarkable except as noted in HPI and below Constitutional: Constitutional: Reports no additional constitutional complaints Eyes: Eyes: Reports no additional eye complaints ENT: Reports system reviewed and no additional complaints, except as documented Cardiovascular: Cardiovascular: Reports no additional cardiovascular complaints Respiratory: Respiratory: Reports no additional respiratory complaints Gastrointestinal: Gastrointestinal: Reports no additional gastrointestinal complaints Genitourinary: Genitourinary: Reports no additional female genitourinary complaints Musculoskeletal: Musculoskeletal: Reports no additional musculoskeletal complaints Integumentary/Breasts: Skin/Breast: Reports system reviewed and no additional complaints, except as docu Neurologic: Reports system reviewed and no additional complaints, except as documented Psychiatric: Psychiatric: Reports no additional psychiatric complaints Endocrine: Endocrine: Reports no additional endocrine complaints Hematologic/Lymphatic: Hematologic/Lymphatic: Reports no additional hematologic/lymphatic complaints Allergic/Immunologic: Allergic/Immunologic: Reports no additional allergic/immunologic complaints [facility] Past Medical History Medical History BMI 25.0-25.9,adult Adult BMI 19-24 kg/sq m BMI 25.0-25.9,adult Personal history of COVID-19 BMI 29.0-29.9,adult Skin cancer BMI 30.0-30.9,adult Bradycardia Pedal edema Fracture of right ankle BMI 36.0-36.9,adult Venous stasis dermatitis Rash Effusion of right knee Bleeding gums Alzheimer's disease CKD (chronic kidney disease) Dementia Lymphedema due to venous insufficiency Onychomycosis BMI 35.0-35.9,adult Fall BMI 34.0-34.9,adult BMI 33.0-33.9,adult Mass of right hand BMI 32.0-32.9,adult Chest pain Agatston coronary artery calcium score between 200 and 399 Other specified abnormal findings of blood chemistry Abnormal finding of blood chemistry BMI 31.0-31.9,adult Encounter for Medicare annual wellness exam Rhinorrhea Encounter for routine adult health examination without abnormal findings Colon cancer screening Mild depression Right shoulder pain Encounter for routine adult health examination with abnormal findings Weakness of both lower extremities Osteoarthritis of right knee Surgical History Surgical History S/P YAG capsulotomy, left Status post left foot surgery History of eyelid surgery 2014 History of foot surgery 2018 Hx of cataract surgery Family History Family History Mother Family history of lung cancer Patient's mother is in good health Father Family history of emphysema Family history of aortic aneurysm Other Acute myocardial infarction Hypertension Social History Social History Smoking status: Former smoker Tobacco type: cigarettes Smoking end date: 02/18/98 Additional smoking assessment comments: 1 PACK/WEEK X 12 YEARS Alcohol intake: never Substance use: never Substance use type: does not use Lack of Transportation: No Lack of Food: Never True Current Housing: I Have Housing Concerned About Future Housing: No Difficulty Paying Gas/Electric Bills: No Difficulty Paying for Meds: No Currently Unemployed: No Education: Grade School Difficulty w/ Childcare or Family Care: No Living arrangements: with family Additional living arrangements comments: HUSB Gender identity (if verbalized by the patient): Female Spiritual care concerns: No Exam Const: General: healthy appearing Nutritional Appearance: well nourished Limitations: other limitations ( dementia) HENMT: Head: normal to inspection Ears: external ears normal Face/Nose/Sinus: Normal external nose present Eyes: Conjunctivae: conjunctivae normal Pupils: Equal, round and reactive pupils present EOM: EOMs intact bilaterally Neck: Neck: normal visual inspection Chest: Chest palpation & inspection: normal inspection of the chest Resp: Effort & Inspection: normal respiratory effort and not labored Auscultation: clear to auscultation bilaterally and no crackles Cardio: Rate: regular rate Rhythm: regular rhythm Heart sounds: no murmurs GI: Inspection: non-distended GI Palp: Yes Soft to palpation and No Tenderness to palpation present (GI) Auscultation: normal bowel sounds : General: Yes bladder normal to palpation Back/Spine/Pelvis: Back: no CVA tenderness Skin: General skin exam: No normal color Rashes: no rashes Wounds: no wounds Other: right wrist has some slight ecchymosis and erythema minimally Neuro: General: moves all extremities, no meningeal signs and no focal motor deficits Cranial nerves: Yes Nystagmus not present Speech: normal speech Extrem: General: abnormal to inspection Other: right wrist is swollen with ecchymosis and erythema minimally Psych: Affect: normal affect Course Vital Signs Vital signs: Vital Signs Temperature 36.7 C 01/17/25 20:34 Pulse Rate 81 01/17/25 20:34 Respiratory Rate 18 01/17/25 20:34 Blood Pressure 161/81 H 01/17/25 20:34 Pulse Oximetry 93 01/17/25 20:34 Oxygen Delivery Room Air 01/17/25 20:34 Temperature 36.7 C 01/17/25 20:34 Pulse Rate 81 01/17/25 20:34 Respiratory Rate 18 01/17/25 20:34 Blood Pressure 161/81 H 01/17/25 20:34 Pulse Oximetry 93 01/17/25 20:34 Oxygen Delivery Room Air 01/17/25 20:34 MDM - Extremity Injury (Upper) MDM Narrative Medical decision making narrative: patient is a 74-year-old female with dementia here for right wrist swelling and pain. We will start with an x-ray. Imaging Data Attestation: I personally reviewed and interpreted this imaging study as follows: Radiologist's impression: X-ray right wrist is negative for acute process Discharge Plan Discharge Clinical Impression: Acute gout of wrist, Cellulitis of right wrist Patient Disposition: Home Condition: Stable Instructions: Antibiotic Form, Cellulitis (ED), Gout (ED) Patient Language: Prydeinig Prescriptions: New colchicine 0.6 mg capsule 0.6 mg PO DAILY Qty: 7 0RF sulfamethoxazole-trimethoprim [Bactrim DS] 800-160 mg tablet 1 tablet PO BID 7 Days Qty: 14 0RF No Action Caltrate 600 plus D 600 mg-20 mcg (800 unit) tablet,chewable 1 tablet PO TID Qty: 90 0RF aspirin [Ecotrin Low Strength] 81 mg tablet,delayed release (DR/EC) 81 mg PO DAILY cyanocobalamin (vitamin B-12) 1,000 mcg/mL solution See Rx Instructions .ROUTE .COMPLEX Qty: 6 3RF Dose Instruction: INJECT 2000 MCG (2 ML) INTRAMUSCULARLY MONTHLY Rx Instructions: INJECT 2000 MCG (2 ML) INTRAMUSCULARLY MONTHLY terbinafine HCl 250 mg tablet 250 mg PO .10 days month SuperBeets [facility] omega-3 fatty acids 1,000 mg capsule 1,200 mg PO TID tramadol 50 mg tablet 50 - 100 mg PO Q6H PRN (Reason: pain) Qty: 8 0RF (DME) Bed Rail See Rx Instructions .Route .MEDSUPPLY Qty: 1 0RF Rx Instructions: As directed (DME) Gait Belt See Rx Instructions .Route .MEDSUPPLY Qty: 1 0RF Rx Instructions: As directed (DME) Shower Seat Cushion See Rx Instructions .Route .MEDSUPPLY Qty: 1 0RF Rx Instructions: As directed (DME) Toilet Sear Riser with Handles See Rx Instructions .Route .MEDSUPPLY Qty: 1 0RF Rx Instructions: As directed losartan 100 mg tablet See Rx Instructions .ROUTE .COMPLEX Qty: 90 1RF Dose Instruction: TAKE 1 TABLET BY MOUTH EVERY DAY Rx Instructions: TAKE 1 TABLET BY MOUTH EVERY DAY memantine 10 mg tablet See Rx Instructions .ROUTE .COMPLEX Qty: 180 1RF Dose Instruction: TAKE 1 TABLET BY MOUTH TWICE A DAY Rx Instructions: TAKE 1 TABLET BY MOUTH TWICE A DAY rosuvastatin 20 mg tablet See Rx Instructions .ROUTE .COMPLEX Qty: 90 1RF Dose Instruction: TAKE 1 TABLET BY MOUTH EVERY DAY Rx Instructions: TAKE 1 TABLET BY MOUTH EVERY DAY Follow-up/Referrals: UNKNOWN,DOCTOR [Non-Staff] - Time of Disposition: 21:42
--- OUTSIDE RECORDS SUMMARY | 2025-01-17 20:45 | XMS_ITS | Continuity of Care Document ---
Author Organization [facility] Address [address] [place] [address] [address] [place] [address] Phone Care Team Providers Care Dishwasher Preparer Name Role Phone Stephanie ABERNATHY, Chandu Unavailable [...] Provider Providers Copied on Encounter [facility], [address] [facility] [address], [place], [place], [id number], [place] tel:[phone] [facility] No Information 8 Stephanie Birminghaml. [address], [address], [id number], . tel:[phone] Referring Provider: Chandu Haganariana , [address], [address]. tel:[phone] [facility], [address] [place] [address], [id number], tel:[phone] [facility] [place] No Information 8 Stephanie Birminghaml. [address], [address], [id number], [place]. tel:[phone] Referring Provider: Chandu Brown , [address] [place] [address], [address]. tel:[phone] [facility], [address] [place] [address], [id number], tel:[phone] [facility] No Information 8 Stephanie Burtonhil. [address], [address], [id number], [place]. tel:[phone] Referring Provider: Chandu Bentleyariana , [address], [address]. tel:[phone] OFFICE/OUTPA TIENT VISIT, [facility], [address] [place] [address], [id number], tel:[phone] [facility] Cataracts (chief complaint) Age-related nuclear cataract, bilateralBila teral keratoconjunc tivitis sicca, not specified as Sjogren'sNone xudative age-related macular degeneration, bilateral, early dry stageMyopia, bilateralPost erior subcapsular polar age-related cataract, bilateralVitr eous degeneration, bilateral 8 Krariana Burtonhil. [address], [place], [place], [id number], [place]. tel:[phone] Referring Provider: Chandu Brown , [address], [place], [address]. tel:[phone] [facility], [address] [place] [address], [place], [place], [id number], tel:[phone] [facility] Ptosis of eyelid, unspecifiedDe rmatochalasis Senile nuclear sclerosis [address] [place]. [address] [place] [address], [address], [place], [address], [place]. tel:[phone] [facility], [address] [place] [address], [id number], tel:[phone] [facility] No Information 3 [place]. [address] [place] [address], [address], [place], [address], . tel:[phone] Referring Provider: Jaya Dumont, [address] [place] [address] [address] [facility], [place], [address]. tel:[phone] Family History Family Member Type Diagnosis Age At Onset No Information Payers Payer name Insurance type Covered republican ID Authoriza tion(s) No Information Social History [...]
--- OUTSIDE RECORDS SUMMARY | 2025-01-17 20:45 | XMS_ITS | Continuity of Care Document ---
Author Organization [facility] Address [address] [place] [address] [place] [address] Phone Care Team Providers Care Maintenance Helper Name Role Phone Macario PT, MS, Nick [...] Diagnoses Date Provider Providers Copied on Encounter [facility], [address] [address], [place], [place], [id number], [place] tel:[phone] [place] No Information 5 Macario Romero. [address] [facility], [address], [place], [address], [place]. tel:[phone] [facility] [address], [place], [place], [id number], [place] tel: [phone] [place] No Information 5 Macario Nick. [address] [facility], [address], [place], [address], [place]. tel: [phone] [facility] [address], [place], [place], [id number], [place] tel: [phone] [place] No Information 5 Macario Nick. [address] [place] [address], [address], [place], [address], [place]. tel: [phone] [facility] [address], [place], [place], [id number], [place] tel: [phone] [place] No Information 5 Macario Nick. [address] [place] [address], [address], [place], [address], [place]. tel: [phone] [facility] [address], [place], [place], [id number], [place] tel:[phone] [place] No Information 5 Macario Nick. [address] [place] [address], [address], [place], [address], [place]. tel: [phone] [facility] [address], [place], [place], [id number], [place] tel: [phone] [place] No Information 5 Macario Nick. [address] [place] [address], [address], [place], [address], [place]. tel: [phone] [facility], [place], [place], [id number], [place] tel:[phone] [place] No Information 5 Macario Nick. [address] [place] [address], [address], [place], [address], [place]. tel: [facility] [facility], [place], [place], [id number], [place] tel:[phone] [place] No Information 4- 5 Macario Nick. [address] [place] [address], [address], [place], [place], [facility], [place]. tel: [phone] [facility] [address], [place], [place], [id number], [place] tel:[phone] [place] No Information 3 5 Macario Nick. [address] [place] [address], [address], [place], [place], [facility], [place]. tel: [phone] [facility] [address], [place], [place], [id number], tel:[phone] [place] No Information 0-201 5 Macario Nick. [address] [place] [address], [address], [place], [facility], [place]. tel: [phone] [facility] [address], [place], [place], [id number], [place] tel:[phone] [place] No Information 7 5 Macario Nick. [address] [place] [address], [address], [place], [facility], [place]. tel: [phone] [facility] [address], [place], [place], [id number], [place] tel:[phone] [place] No Information 5201 5 Macario Nick. [address] [place] [address], [address], [place], [facility], [place]. tel: [phone] [facility] [address], [place], [place], [id number], [place] tel:[phone] [place] Pain in joint involving ankle and foot 3-201 5 Macario Nick. [address] [place] [address], [address], [place], [facility], [place]. tel: [phone] Family History Family Member Type Diagnosis Age At Onset No Information Payers Payer name Insurance type Covered republican ID Authoriza tion(s) [place] [id number] [facility] [id number] [facility] [id number] Social History Type Description Quantity Date Captured [...]
--- NOTE | 2025-01-17 21:09 | PC.NURSE ---
PATIENT IS RESTING ON STRETCHER. HER FAMILY IS AT HER SIDE. CURRENTLY WAITING ON XRAY RESULTS.
[2025-01-17] MEDS: SULFAMETHOXAZOLE/TRIMETHOPRIM 800/160 MG DS TABLET 1 TAB PO (22:00)
[2025-01-17] MEDS: COLCHICINE 0.6 MG TABLET 1.2 MG PO (22:01)
[2025-01-17 22:19] VITALS: BP 142/80; PULSE 72; RESP 18; O2SAT 94
== END 2025-01-17 22:19 | disposition home or self-care (01) ==
PROVIDERS: Emergency Provider Emergency Medicine; PCP Internal Medicine
DX: M10.9 Gout, unspecified (principal); L03.113 Cellulitis of right upper limb; F03.90 Unspecified dementia, unspecified severity, without behavioral disturbance, psychotic disturbance, mood disturbance, and anxiety; N18.9 Chronic kidney disease, unspecified; Z87.891 Personal history of nicotine dependence
CPT/HCPCS: 73110; 99283; A9270

== ENCOUNTER 2025-05-31 11:25 | Emergency (ER) | payer MEDICARE, SELFPAY ==
--- OUTSIDE RECORDS SUMMARY | 2015-04-15 04:30 | XMS_ITS | Continuity of Care Document ---
Author Organization [facility] Address [address] [place] [address] [place] [address] Phone Care Team Providers Care Broom Stitcher Name Role Phone Macario PT, MS, Nick Unavailable Unavailable Procedures Procedure Date PT RE-EVALUATION THERAPEUTIC EXERCISES NEUROMUSCULAR RE-ED FUNC ACTIVITY Carrying, Moving And Handling Objects-Cu rrent Carrying, Moving And Handling Objects-Go al Medications Name Dose Freq Route DOC Mar THERAPEUTIC EXERCISES NEUROMUSCULAR RE-ED FUNC ACTIVITY Medications Name Dose Freq Route DOC Mar THERAPEUTIC EXERCISES NEUROMUSCULAR RE-ED FUNC ACTIVITY Medications Name Dose Freq Route DOC Mar THERAPEUTIC EXERCISES NEUROMUSCULAR RE-ED FUNC ACTIVITY Medications Name Dose Freq Route DOC Mar PT RE-EVALUATION THERAPEUTIC EXERCISES NEUROMUSCULAR RE-ED FUNC ACTIVITY Carrying, Moving And Handling Objects-Cu rrent Carrying, Moving And Handling Objects-Go al Medications Name Dose Freq Route DOC Feb THERAPEUTIC EXERCISES NEUROMUSCULAR RE-ED FUNC ACTIVITY ULTRASOUND THERAPY Medications Name Dose Freq Route DOC Feb THERAPEUTIC EXERCISES NEUROMUSCULAR RE-ED FUNC ACTIVITY ULTRASOUND THERAPY Medications Name Dose Freq Route DOC Feb THERAPEUTIC EXERCISES NEUROMUSCULAR RE-ED FUNC ACTIVITY Medications Name Dose Freq Route DOC Feb THERAPEUTIC EXERCISES NEUROMUSCULAR RE-ED FUNC ACTIVITY ULTRASOUND THERAPY Medications Name Dose Freq Route DOC Feb THERAPEUTIC EXERCISES NEUROMUSCULAR RE-ED ULTRASOUND THERAPY Medications Name Dose Freq Route DOC Feb THERAPEUTIC EXERCISES NEUROMUSCULAR RE-ED ULTRASOUND THERAPY Medications Name Dose Freq Route DOC Feb THERAPEUTIC EXERCISES NEUROMUSCULAR RE-ED ULTRASOUND THERAPY Medications Name Dose Freq Route DOC Feb PT EVALUATION THERAPEUTIC EXERCISES NEUROMUSCULAR RE-ED ULTRASOUND THERAPY Carrying, Moving And Handling Objects-Cu rrent Carrying, Moving And Handling Objects-Go al Medications w/ Name Dose Freq NOT Route No Reason DOC Pain Assess Positive DOC 2014 BMI Normal and DOC 18-64 yo=18.5-25.0 65 + yo=23.0-30.0 No Falls or 1 Fall w/o Injury Screened f or Fall Risk Functional Outcome Assessmen t documented, deficits identified, treatment plan es Advance Directives Directive Yes / No Effective Date File Name No Information Encounters Encounter Description Practice Location Reason(s) For Visit Diagnoses Date Provider Providers Copied on [facility], [address] [address], [place], [place], [id number], [place] tel:[phone] [place] No Information 5 Macario Romero. [address] [facility], [address], [place], [address], [place]. tel:[phone] [facility] [address], [place], [place], [id number], [place] tel: [phone] [place] No Information 5 Macario Nick. [address] [facility], [address], [place], [address], [place]. tel: [phone] [facility] [address], [place], [place], [address], [place] tel: [phone] [place] No Information 5 Macario Nick. [address] [place] [address], [address], [place], [address], [place]. tel: [phone] [facility] [address], [place], [place], [id number], [place] tel: [phone] [place] No Information 5 Macario Nick. [address] [place] [address], [address], [place], [address], [place]. tel: [phone] [facility] [address], [place], [place], [id number], [place] tel:[phone] [place] No Information 5 Macario Nick. [address] [place] [address], [address], [place], [address], [place]. tel: [phone] [facility] [address], [place], [place], [id number], [place] tel: [phone] [place] No Information 5 Macario Nick. [address] [place] [address], [address], [place], [address], [place]. tel: [phone] [facility], [place], [place], [id number], [place] tel:[phone] [place] No Information 5 Macario Nick. [address] [place] [address], [address], [place], [address], [place]. tel: [facility], [place], [place], [id number], [place] tel:[phone] [place] No Information 4- 5 Macario Nick. [address] [place] [address], [address], [place], [place], [facility], [place]. tel: [phone] [facility] [address], [place], [place], [address], [place] tel:[phone] [place] No Information 3 5 Macario Nick. [address] [place] [address], [address], [place], [facility], [place]. tel: [phone] [facility] [address], [place], [address], tel:[phone] [place] No Information 0-201 5 Macario Nick. [address] [place] [address], [address], [place], [facility], [place]. tel: [phone] [facility] [address], [place], [place], [id number], [place] tel:[phone] [place] No Information 7 5 Macario Nick. [address] [place] [address], [address], [place], [facility], [place]. tel: [phone] [facility] [address], [place], [place], [address], [place] tel:[phone] [place] No Information 5201 5 Macario Nick. [address] [place] [address], [address], [place], [facility], [place]. tel: [phone] [facility] [address], [place], [place], [id number], [place] tel:[phone] [place] Pain in joint involving ankle and foot 3-201 5 Macario Nick. [address] [place] [address], [address], [place], [place], [facility], [place]. tel: [phone] Family History Family Member Type Diagnosis Age At Onset No Information Payers Payer name Insurance type Covered green party ID Authoriza tion(s) [place] [id number] [facility] [id number] [facility] [id number] Social History Type Description Quantity Date Captured Comments Sex Female Smoking Status No Information Chief Complaint And Reason For Visit No Information Reason For Referral Reason For Referral No Information History Of Present Illness Encounter Date Complaint History Of Prese nt Illness No Information Functional Status Date Functional Assessmen t No Information Instructions Date Instruction Additional Infor mation No Information Assessments Type Assessment Date No Information Patient Care Teams Name Effective Dates (start - stop) Status Members No Information
--- OUTSIDE RECORDS SUMMARY | 2018-04-26 02:40 | XMS_ITS | Continuity of Care Document ---
Author Organization [facility] Address [id number] [place] [address] [address] [place] [address] Phone Care Team Providers Care Director Digital Analytics Name Role Phone Stephanie ABERNATHY, Chandu Unavailable Unavaila ble Allergies, Adverse Reactions, Alerts Substance Reaction Status Criticality lisinopril Active No Information Medications Medication Instructions Dosage Effective Dates (start - stop) Status Comments losartan 100 mg-hydrochlorothiaz socorro 12.5 mg tablet take 1 tablet by oral route every day 1.00 tablet - Active Bystolic 10 mg tablet take 2 tablet by oral route every day 20 MG - Active donepezil 5 mg tablet take 1 tablet by oral route every day in the evening 5 MG - Active Vitamin B-12 (unknown strength) Not Available - Active FISH OIL (unknown strength) Not Available - Active Ecotrin Low Strength 81 mg tablet,enteric coated take 1 tablet by oral route every day 81 MG - Active pravastatin 20 mg tablet take 2 tablet (40MG) by oral route every day 40 MG - Active Procedures Procedure Date CATARACT SURG W/IOL, 1 STAGE CATARACT SURG W/IOL, 1 STAGE NON MED NEC IOL PREOP OFFICE/OUTPATIENT VISIT, [facility] 2 EYES EYE EXAM, NEW PATIENT Medical Records Advance Directives Directive Yes / No Effective Date File Name No Information Encounters Encounter Description Practice Location Reason(s) For Visit Diagnoses Date Provider Providers Copied on Encounter [facility], [address] [facility] [address], [place], [place], [id number], [place] tel:[phone] [facility] No Information 8 Stephanie Birmignhaml. [address], [address], [id number], . tel:[phone] Referring Provider: Chandu Haganariana , [address], [place], [address]. tel:[phone] [facility], [address] [place] [address], [id number], tel:[phone] [facility] No Information 8 Stephanie Birminghaml. [address], [address], [address], [place]. tel:[phone] Referring Provider: Chandu Brown , [address] [place] [address], [address]. tel:[phone] [facility], [address] [place] [address], [id number], tel:[phone] [facility] No Information 8 Stephanie Burtonhil. [address], [address], [address], [place]. tel:[phone] Referring Provider: Chandu Bentleyariana , [address], [place], [address]. tel:[phone] OFFICE/OUTPA TIENT VISIT, [facility], [address] [place] [address], [id number], tel:[phone] [facility]UEL Cataracts (chief complaint) Age-related nuclear cataract, bilateralBila teral keratoconjunc tivitis sicca, not specified as Sjogren'sNone xudative age-related macular degeneration, bilateral, early dry stageMyopia, bilateralPost erior subcapsular polar age-related cataract, bilateralVitr eous degeneration, bilateral 8 Krariana Burtonhil. [address], [address], [place], [place], [id number], [place]. tel:[phone] Referring Provider: Chandu Brown , [address], [place], [address]. tel:[phone] [facility], [address] [place] [address], [place], [place], [id number], tel:[phone] [facility] PAUL[facility] MANUEL Ptosis of eyelid, unspecifiedDe rmatochalasis Senile nuclear sclerosis [address] [place]. [address] [place] [address], [address], [place], [address], [place]. tel:[phone] [facility], [address] [place] [address], [id number], tel:[phone] [facility] No Information 3 [place]. [address] [place] [address], [address], [place], [address], . tel:[phone] Referring Provider: Jaya Dumont, [address] [place] [address] [address] [facility], [place], [address]. tel:[phone] Family History Family Member Type Diagnosis Age At Onset No Information Payers Payer name Insurance type Covered constitution party ID Authoriza tion(s) No Information Social History Type Description Quantity Date Captured Comments Sex Female Smoking Status No Information Chief Complaint And Reason For Visit No Information Reason For Referral Reason For Referral No Information History Of Present Illness Encounter Date Complaint History Of Prese nt Illness Cataracts The 67 year old female presents for evaluation of Cataracts in the right eye and left eye. It started about 1 year(s) ago. It affects OU. The symptom is constant. The condition is significant. Pt was referred by Dr. Brian VILLEGAS for a cataract evaluation. Pt states OD seems worse. Pt wears GP contacts. she has been out of them for 2 weeks. Functional Status Date Functional Assessmen t No Information Instructions Date Instruction Additional Infor mation Impression/Plan Related to Age-r elated nuclear cataract, bilateral Impression/Plan Related to Bilat eral keratoconjunctivitis sicca, not specified as Sjogren's Impression/Plan Related to Nonex udative age-related macular degeneration, bilateral, early dry stage Impression/Plan Related to Myopi a, bilateral Impression/Plan Related to Poste rior subcapsular polar age-related cataract, bilateral Impression/Plan Related to Vitre ous degeneration, bilateral - Return in 1 week w vinh Quan MD for post op exam. Related to Cataract, Nuclear Sclerosis Ptosis, unspecified BUL Dermatochalasis BUL Cataract, Nuclear Sclerosis OU - schedule BUL external levator resection BUL blepharoplasty Related to Cataract, Nuclear Sclerosis Assessments Type Assessment Date No Information Patient Care Teams Name Effective Dates (start - stop) Status Members No Information
--- OUTSIDE RECORDS SUMMARY | 2018-04-26 02:40 | XMS_ITS | Continuity of Care Document ---
Author Organization [facility] Address [address] [place] [address] [address] [place] [address] Phone Care Team Providers Care Printer Slotter Helper Name Role Phone Stephanie ABERNATHY, Chandu Unavailable [...] Providers Copied on Encounter [facility], [address] [facility] [address], [place], [place], [id number], [place] tel:[phone] [facility] No Information 8 Stephanie Birminghaml. [address], [address], [place], [address], . tel:[phone] Referring Provider: Chandu Haganariana , [address], [place], [address]. tel:[phone] [facility], [address] [place] [address], [id number], tel:[phone] [facility] [place] No Information 8 Stephanie Birminghaml. [address], [address], [place], [id number], [place]. tel:[phone] Referring Provider: Chandu Brown , [address] [place] [address], [address]. tel:[phone] [facility], [address] [place] [address], [id number], tel:[phone] [facility] No Information 8 Stephanie Burtonhil. [address], [address], [place], [id number], [place]. tel:[phone] Referring Provider: Chandu Bentleyariana , [address], [place], [address]. tel:[phone] OFFICE/OUTPA TIENT VISIT, [facility], [address] [place] [address], [id number], tel:[phone] [facility] PAULA MANUEL Cataracts (chief complaint) Age-related nuclear cataract, bilateralBila teral keratoconjunc tivitis sicca, not specified as Sjogren'sNone xudative age-related macular degeneration, bilateral, early dry stageMyopia, bilateralPost erior subcapsular polar age-related cataract, bilateralVitr eous degeneration, bilateral 8 Krariana Burtonhil. [address], [address], [place], [place], [id number], [place]. tel:[phone] Referring Provider: Chandu Brown , [address] [facility] [address], [place], [address]. tel:[phone] [facility], [address] [place] [address], [place], [place], [id number], tel:[phone] [facility] PAULA MANUEL Ptosis of eyelid, unspecifiedDe rmatochalasis Senile nuclear sclerosis [address] [place]. [address] [place] [address], [address], [place], [address], [place]. tel:[phone] [facility], [address] [place] [address], [id number], tel:[phone] [facility] No Information 3 [place]. [address] [place] [address], [address], [place], [address], . tel:[phone] Referring Provider: Jaya Dumont, [address] [place] [address] [address] [facility], [place], [address]. tel:[phone] Family History Family Member Type Diagnosis Age At Onset No Information Payers Payer name Insurance type Covered democrat ID Authoriza tion(s) No Information Social History [...] Instruction Additional Infor mation Impression/Plan Related to Vitre ous degeneration, bilateral Impression/Plan Related to Poste rior subcapsular polar age-related cataract, bilateral Impression/Plan Related to Myopi a, bilateral Impression/Plan Related to Nonex udative age-related macular degeneration, bilateral, early dry stage Impression/Plan Related to Bilat eral keratoconjunctivitis sicca, not specified as Sjogren's Impression/Plan Related to Age-r elated nuclear cataract, bilateral Ptosis, unspecified BUL Dermatochalasis BUL Cataract, Nuclear Sclerosis OU - schedule BUL external levator resection BUL blepharoplasty Related to Cataract, Nuclear Sclerosis - Return in 1 week w vinh Quan MD for post op exam. Related to Cataract, Nuclear Sclerosis Assessments Type Assessment Date No Information Patient Care Teams Name Effective Dates (start - stop) Status Members No Information
--- NOTE | ~2025-05-31 | XR_ITS ---
Examination: XR chest 1V Clinical History: gen weakness Comparison: 09/17/2023 Technique: Portable AP Findings: Unchanged cardiomegaly and mediastinal contours. Small interstitial opacity right lateral midlung. Mild bibasilar atelectasis. No acute bony abnormality. IMPRESSION: 1. Minimal right lung pneumonitis suspected. 2. Otherwise no acute abnormality. Reviewed, dictated and finalized at location R.
--- NOTE | ~2025-05-31 | CT_ITS ---
EXAMINATION: CT brain wo katja, 05/31/2025 14:25 CDT HISTORY: falls, weakness COMPARISON: No comparisons available. Technique: Axial images obtained of the brain without contrast. One or more of the following dose reduction techniques were used: automated exposure control, adjustment of the mA and/or kV according to patient size, use of iterative reconstruction technique. Findings: No acute infarct or parenchymal hemorrhage. No abnormal mass or mass effect. No midline shift. No extra-axial fluid collections. No hydrocephalus. Mastoid air cells unremarkable. Sinuses and orbits unremarkable. No acute fracture. No significant facial or scalp soft tissue swelling evident. No radiopaque foreign body is seen. Impression: 1.No acute intracranial abnormality. Reviewed, dictated and finalized at location P. Impression: 1.No acute intracranial abnormality.
[2025-05-31 11:28] VITALS: BP 140/68; PULSE 63; RESP 18; TEMP 36.8; O2SAT 97
--- OUTSIDE RECORDS SUMMARY | 2025-05-31 11:29 | XMS_ITS | Clinical Summary ---
Author Organization [facility] [place] [address] Address [address] [place] [address] Care Team Providers Care Fuse Coiler Name Role Phone Luke Powers MD Primary Care Provider [phone] Allergies Active Allergy Reactions Criticality Noted Date Comments Lisinopril Rash Medium 07/01/2020 Social History Tobacco Use Types Packs/Day Years Used Date Smoking Tobacco: Never Assessed Personal Safety Answer Date Recorded Getting School Help Needed Not on file 11/03 Comments Unknown Sex and Gender Information Value Date Recorded Sex Assigned at Not on file 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 MEDICARE ADVANTAGE [facility] MEDICARE Address: [facility] [address] [place] [address] Care Teams Fuse Coiler Relationship Specialty Start Date End Date Luke Powers MD PCP - General Internal Medicine 06/23/20
--- OUTSIDE RECORDS SUMMARY | 2025-05-31 11:29 | XMS_ITS | Clinical Summary ---
Author Organization [facility] Address [address] [place] [address] Care Team Providers Care Environmental Sampler Name Role Phone Luke Powers MD Primary Care Provider [phone] Social History Tobacco Use Types Packs/Day Years Used Date Smoking Tobacco: Never Assessed Comments Unknown Sex and Gender Information Value Date Recorded Sex Assigned at Not on file Legal Sex Female 5:40 PM CDT Gender Identity Not on file Sexual Orientation Not on file Plan of Treatment Health Maintenance Due Date Last Done Comments Hepatitis C 1966 DTaP, Tdap and Td Vaccines ( 1 - Tdap) 12/18/1967 Pneumococcal Vaccine: 50+ Ye ars (1 of 1 - PCV) 1998 Zoster Vaccines (1 of 2) 1998 Annual Medicare Wellness Visit 2013 Dexa Scan (General) 2013 RSV Immunization or 60+ Years (1 - 1-dose 75+ series) 12/18/2023 COVID-19 Vaccine (2023-2 5 season) 2025 Meningococcal B Vaccine Aged Out No l onger eligible based on patient's age to complete this topic Meningococcal Vaccine Aged Out No roman rachel eligible based on patient's age to complete this topic RSV Immunizations Under 20 Months Aged Out No longer eligible based on patient's age to complete this topic Insurance [facility] MEDICARE Care Teams Environmental Sampler Relationship Specialty Start Date End Date Luke Powers MD [address] [place] [address] PCP - General INTERNAL MEDICINE 06/17/20
--- NOTE | 2025-05-31 12:26 | ECG_ITS ---
Test Date: 2025-05-31 12:45:40 Measurements Intervals Ira Rate: 52 P: 46 MI: 178 QRS: 11 QRSD: 92 T: 13 QT: 444 QTc: 415 Interpretive Statements SINUS BRADYCARDIA BORDERLINE T WAVE ABNORMALITY- INFERIOR LEADS BASELINE ARTIFACT- I, II, III, AVR, AVL, AVF, V1-V6 BORDERLINE ECG No previous ECG available for comparison Electronically Signed On 05-31-2025 15:55:05 CDT by Arjun Mendes D.O.
--- OUTSIDE RECORDS SUMMARY | 2025-05-31 12:55 | XMS_ITS | Clinical Summary ---
Author Organization [facility] [place] [place] [address] Address [address] [place] [address] Care Team Providers Care Timing Machine Operator Name Role Phone Luke Powers MD Primary Care Provider Allergies Active Allergy Reactions Criticality Noted Date Comments Lisinopril Rash Medium 07/01/2020 Social History Tobacco Use Types Packs/Day Years Used Date Smoking Tobacco: Never Assessed Personal Safety Answer Date Recorded Getting School Help Needed Not on file 11/03 Comments Unknown Sex and Gender Information Value Date Recorded Sex Assigned at Not on file 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 MEDICARE AD[facility]ANTAGE [facility] MEDICARE Address: [facility] [address] [place] [address] Care Teams Timing Machine Operator Relationship Specialty Start Date End Date Luke Powers MD PCP - General Internal Medicine 06/23/20
--- OUTSIDE RECORDS SUMMARY | 2025-05-31 12:55 | XMS_ITS | Clinical Summary ---
Author Organization [facility] Address [address] [place] [address] Care Team Providers Care Screen Printing Machine Loader Unloader Name Role Phone Luke Powers MD Primary Care Provider [phone] Social History Tobacco Use Types Packs/Day Years [...] patient's age to complete this topic Insurance [facility] MEDICARE Care Teams Screen Printing Machine Loader Unloader Relationship Specialty Start Date End Date Luke Powers MD [address] [place] [address] PCP - General INTERNAL MEDICINE 06/17/20
[2025-05-31 13:01] VITALS: BP 160/87; PULSE 52; RESP 13; O2SAT 98
[2025-05-31 13:13] LABS: Hematocrit 38.1 % (37.0-47.0); Hemoglobin 12.6 g/dL (12.0-15.0); Immature Granulocyte Percent A 0.3 % (0-0.5); Lymphocytes Absolute Auto 0.84 K/mm3 (0.9-3.2); Mean Corpuscular HGB Conc 33.1 g/dl (32-36); Mean Corpuscular Hemoglobin 29.4 pg (26-34); Mean Corpuscular Volume 88.8 fl (80-100); Nucleated Red Blood Cells Absolute Auto 0.000 K/mm3 (0.0-0.012); Nucleated Red Blood Cells Perc 0.0 % (0.0-0.2); Platelet Count Result 186 k/mm3 (150-375); Red Blood Count 4.29 M/mm3 (4.2-5.4); White Blood Count 7.0 K/mm3 (4.5-10.0)
[2025-05-31 13:29] LABS: Alanine Aminotransferase 12 U/L (6-35); Albumin Level 3.9 g/dL (3.5-5.1); Alkaline Phosphatase 98 U/L (38-126); Anion Gap 6 mmol/L (4-12); Aspartate Amino Transferase 24 U/L (14-36); Bilirubin,Total 0.5 mg/dL (0.2-1.3); Blood Urea Nitrogen 10 mg/dL (7-17); Calcium 9.5 mg/dL (8.4-10.2); Carbon Dioxide 26 mmol/L (22-30); Chloride 105 mmol/L (98-107); Estimated CRCL calculation 42 ml/min; Estimated Glomerular Filt Rate 59; Glucose 101 mg/dL (65-110); Potassium 3.9 mmol/L (3.4-5.0); Sodium 137 mmol/L (137-145); Total Protein 6.6 g/dL (6.3-8.2)
[2025-05-31 13:51] LABS: Add Urine Microscopic? NO; Appearance Urine Clear (Clear); Glucose Urine UA Negative (Negative); Leukocyte Esterase Ur Negative LEU/UL (Negative); Nitrate Urine Negative (Negative); Specific Grav Ur 1.004 (1.001-1.035)
[2025-05-31 14:00] VITALS: BP 166/88; PULSE 47; RESP 12; O2SAT 99
[2025-05-31] MEDS: AZITHROMYCIN 500 MG TABLET PO (15:10)
[2025-05-31 15:15] VITALS: BP 178/90; PULSE 63; RESP 16; O2SAT 97
--- NOTE | 2025-05-31 15:56 | ED.WEAKNESS ---
HPI - Weakness General Chief complaint: Weakness Stated complaint: weakness Time Seen by Provider: 05/31/25 12:40 History of Present Illness HPI Narrative: 74F here with generalized weakness; she has dementia and is nonverbal at baseline. Being treated for UTI currently. noticed some coughing last night. Related Data Home Medications ?Medication ?Instructions ?Recorded ?Confirmed ?Last Taken ?Type aspirin 81 mg tablet,delayed 81 mg PO DAILY 06/09/20 05/27/25 Unknown History release (Ecotrin Low Strength) omega-3 fatty acids 1,000 mg 1,200 mg PO TID 11/30/23 05/27/25 Unknown History capsule SuperBeets BYMOUTH 01/09/25 05/27/25 Unknown History terbinafine HCl 250 mg tablet 250 mg PO .10 days month 01/09/25 05/27/25 Unknown History Allergies Allergy/AdvReac Type Severity Reaction Status Date / Time RASHAUN Inhibitors Allergy Unknown Hives Verified 01/17/25 20:48 ibuprofen Allergy Unknown unknown Verified 01/17/25 20:48 irbesartan Allergy Unknown Unknown Verified 01/17/25 20:48 lisinopril Allergy Unknown Hives Verified 01/17/25 20:48 olmesartan Allergy Unknown unknown Verified 01/17/25 20:48 Review of Systems Review of Systems: ROS unobtainable: Yes unobtainable due to mental status PMFSH Past Medical History Medical History (Updated 05/31/25 @ 14:59 by Ying Gibson MD) Adult BMI 19-24 kg/sq m BMI 25.0-25.9,adult Personal history of COVID-19 BMI 29.0-29.9,adult Skin cancer BMI 30.0-30.9,adult Bradycardia Pedal edema Fracture of right ankle BMI 36.0-36.9,adult Venous stasis dermatitis Rash Effusion of right knee Bleeding gums Alzheimer's disease CKD (chronic kidney disease) Dementia Lymphedema due to venous insufficiency Onychomycosis BMI 35.0-35.9,adult Fall BMI 34.0-34.9,adult BMI 33.0-33.9,adult Mass of right hand BMI 32.0-32.9,adult Chest pain Agatston coronary artery calcium score between 200 and 399 Other specified abnormal findings of blood chemistry Abnormal finding of blood chemistry BMI 31.0-31.9,adult Encounter for Medicare annual wellness exam Rhinorrhea Encounter for routine adult health examination without abnormal findings Colon cancer screening Mild depression Right shoulder pain Encounter for routine adult health examination with abnormal findings Weakness of both lower extremities Osteoarthritis of right knee Surgical History Surgical History S/P YAG capsulotomy, left Status post left foot surgery History of eyelid surgery 2014 History of foot surgery 2018 Hx of cataract surgery Family History Family History Mother Family history of lung cancer Patient's mother is in good health Father Family history of emphysema Family history of aortic aneurysm Other Acute myocardial infarction Hypertension Social History Social History Smoking status: Former smoker Tobacco type: cigarettes Smoking end date: 02/18/98 Additional smoking assessment comments: 1 PACK/WEEK X 12 YEARS Alcohol intake: never Substance use: never Substance use type: does not use Lack of Transportation: No Lack of Food: Never True Current Housing: I Have Housing Concerned About Future Housing: No Difficulty Paying Gas/Electric Bills: No Difficulty Paying for Meds: No Currently Unemployed: No Education: Grade School Difficulty w/ Childcare or Family Care: No Living arrangements: with family Additional living arrangements comments: [facility] Gender identity (if verbalized by the patient): Female Spiritual care concerns: No Exam Narrative: EXAMINATION OF ORGAN SYSTEMS/BODY AREAS: Constitutional: Vital signs per nursing GENERAL:[No acute distress, non-toxic appearing.] Pleasantly demented. HEAD: Normal with no signs of head trauma. EYES: EOMI, conjunctiva normal ENT: Eybrows expertly drawn on by LUNGS: Nonlabored breathing. HEART: [Regular rate and rhythm] ABD: [Soft], [nontender to palpation] EXT: Normal range of motion SKIN: [No rashes or lesions.] NEURO: [Alert; nonverbal at baseline. No gross focal sensory or strength deficits.] PSYCH: Normal affect Course Vital Signs Vital signs: Vital Signs Temperature 98.2 F 05/31/25 11:28 Pulse Rate 63 05/31/25 11:28 Respiratory Rate 18 05/31/25 11:28 Blood Pressure 140/68 05/31/25 11:28 Pulse Oximetry 97 05/31/25 11:28 Oxygen Delivery Room Air 05/31/25 11:28 Temperature 98.2 F 05/31/25 11:28 Pulse Rate 63 05/31/25 15:15 Respiratory Rate 16 05/31/25 15:15 Blood Pressure 178/90 H 05/31/25 15:15 Pulse Oximetry 97 05/31/25 15:15 Oxygen Delivery Room Air 05/31/25 11:28 MDM - Weakness MDM Narrative Medical decision making narrative: Patient presents with some generalized weakness, being treated for UTI, unsure if she had a recent fall but she does bruise easily. Has a slight cough at night per . She is very well-appearing here, nonverbal at baseline, I do not see any obvious signs of trauma. Nonlabored respirations, moving all extremities spontaneous without any obvious focal deficits, though limited by patient understanding of exam. Broad workup initiated here, EKG - 12-Lead: Performed at 1245. Interpreted by me. Sinus bradycardia. Rate 52. [Normal] axis. CT-interval 178. QRS duration 92. QTc 415. [No ST segment elevation or depression]. [T-wave normal]. Impression: No EKG evidence of acute ischemia or dysrhythmia. Chest x-ray showing possible pneumonitis. I will therefore start her on antibiotics, especially given that she had a slight cough. CT brain without acute abnormality. And UA unremarkable. I discussed findings with patient, family bedside, and her primary care doctor, they are comfortable with outpatient management, with return precautions. Lab Data 05/31/25 13:06 05/31/25 13:06 Labs: Lab Results 05/31/25 05/31/25 Range/Units 13:06 13:42 WBC 7.0 (4.5-10.0) K/mm3 RBC 4.29 (4.2-5.4) M/mm3 Hgb 12.6 (12.0-15.0) g/dL Hct 38.1 (37.0-47.0) % MCV 88.8 (80-100) fl MCH 29.4 (26-34) pg MCHC 33.1 (32-36) g/dl RDW 13.2 (11.5-14.5) % Plt Count 186 (150-375) k/mm3 MPV 8.8 (7.4-10.4) fl Immature Gran % (Auto) 0.3 (0-0.5) % Neut % (Auto) 79.0 H (45.5-73.1) % Lymph % (Auto) 12.0 L (18.3-44.2) % Baker % (Auto) 7.3 (2.6-8.5) % Eos % (Auto) 1.0 (0-4.4) % Baso % (Auto) 0.4 (0.2-1.2) % Lymph # (Auto) 0.84 L (0.9-3.2) K/mm3 Baker # (Auto) 0.5 (0.1-0.6) K/mm3 Eos # (Auto) 0.1 (0-0.3) K/mm3 Baso # (Auto) 0.0 (0.0-0.1) K/mm3 Abs Immat Gran (auto) 0.02 (0.00-0.031) K/mm3 Absolute Neuts (auto) 5.5 (1.3-6.7) K/mm3 Absolute Nucleated RBC 0.000 (0.0-0.012) K/mm3 Nucleated RBC % 0.0 (0.0-0.2) % Sodium 137 (137-145) mmol/L Potassium 3.9 (3.4-5.0) mmol/L Chloride 105 (98-107) mmol/L Carbon Dioxide 26 (22-30) mmol/L Anion Gap 6 (4-12) mmol/L BUN 10 (7-17) mg/dL Creatinine 0.93 (0.7-1.0) mg/dL Estim Creat Clear Calc 42 ml/min Estimated GFR 59 (59 - ) Glucose 101 (65-110) mg/dL Calcium 9.5 (8.4-10.2) mg/dL Total Bilirubin 0.5 (0.2-1.3) mg/dL AST 24 (14-36) U/L ALT 12 (6-35) U/L Alkaline Phosphatase 98 (38-126) U/L Total Protein 6.6 (6.3-8.2) g/dL Albumin 3.9 (3.5-5.1) g/dL Urine Color Yellow (Yellow) Urine Appearance Clear (Clear) Urine pH 7.0 (5.0-9.0) Ur Specific [place] 1.004 (1.001-1.035) Urine Protein Negative (Negative) mg/dL Urine Glucose (UA) Negative (Negative) mg/dL Urine Ketones Negative (Negative) mg/dL Ur Blood (Man) Negative (Negative) Urine Nitrate Negative (Negative) Urine Bilirubin Negative (Negative) Urine Urobilinogen 0.2 (<2.0) mg/dL Leukocyte Esterase Rfl Negative (Negative) JESUS/UL Discharge Plan Discharge Clinical Impression: Generalized weakness, Pneumonitis Patient Disposition: Home Condition: Stable Instructions: Antibiotic Form, Pneumonitis (ED), Weakness (ED) Additional Instructions: Please follow up with your doctor; take the meds as prescribed; you can always return to the ER for any further issues. Patient Language: Setswana Prescriptions: New azithromycin 250 mg tablet 250 mg PO DAILY 4 Days Qty: 4 0RF Rx Instructions: start on day 2 of therapy No Action colchicine 0.6 mg capsule 0.6 mg PO DAILY Qty: 7 0RF Caltrate 600 plus D 600 mg-20 mcg (800 unit) tablet,chewable 1 tablet PO TID Qty: 90 0RF aspirin [Ecotrin Low Strength] 81 mg tablet,delayed release (DR/EC) 81 mg PO DAILY cyanocobalamin (vitamin B-12) 1,000 mcg/mL solution See Rx Instructions .ROUTE .COMPLEX Qty: 6 3RF Dose Instruction: INJECT 2000 MCG (2 ML) INTRAMUSCULARLY MONTHLY Rx Instructions: INJECT 2000 MCG (2 ML) INTRAMUSCULARLY MONTHLY terbinafine HCl 250 mg tablet 250 mg PO .10 days month SuperBeets BYMOUTH nitrofurantoin monohyd/m-cryst [Macrobid] 100 mg capsule 100 mg PO Q12H 7 Days Qty: 14 0RF Rx Instructions: must administer with a meal/food omega-3 fatty acids 1,000 mg capsule 1,200 mg PO TID tramadol 50 mg tablet 50 - 100 mg PO Q6H PRN (Reason: pain) Qty: 8 0RF (DME) Bed Rail See Rx Instructions .Route .MEDSUPPLY Qty: 1 0RF Rx Instructions: As directed (DME) Gait Belt See Rx Instructions .Route .MEDSUPPLY Qty: 1 0RF Rx Instructions: As directed (DME) Shower Seat Cushion See Rx Instructions .Route .MEDSUPPLY Qty: 1 0RF Rx Instructions: As directed (DME) Toilet Sear Riser with Handles See Rx Instructions .Route .MEDSUPPLY Qty: 1 0RF Rx Instructions: As directed memantine 10 mg tablet See Rx Instructions .ROUTE .COMPLEX Qty: 180 1RF Dose Instruction: TAKE 1 TABLET BY MOUTH TWICE A DAY Rx Instructions: TAKE 1 TABLET BY MOUTH TWICE A DAY losartan 100 mg tablet See Rx Instructions .ROUTE .COMPLEX Qty: 90 1RF Dose Instruction: TAKE 1 TABLET BY MOUTH EVERY DAY Rx Instructions: TAKE 1 TABLET BY MOUTH EVERY DAY rosuvastatin 20 mg tablet See Rx Instructions .ROUTE .COMPLEX Qty: 90 1RF Dose Instruction: TAKE 1 TABLET BY MOUTH EVERY DAY Rx Instructions: TAKE 1 TABLET BY MOUTH EVERY DAY Follow-up/Referrals: Luke Powers MD [Primary Care Provider, Internal Medicine] - 2 Days
== END 2025-05-31 15:20 | disposition home or self-care (01) ==
PROVIDERS: Emergency Provider Emergency Medicine; PCP Internal Medicine
DX: R53.1 Weakness (principal); J98.4 Other disorders of lung; G30.9 Alzheimer's disease, unspecified; F02.80 Dementia in other diseases classified elsewhere, unspecified severity, without behavioral disturbance, psychotic disturbance, mood disturbance, and anxiety; N18.9 Chronic kidney disease, unspecified; I87.2 Venous insufficiency (chronic) (peripheral); I89.0 Lymphedema, not elsewhere classified; M17.11 Unilateral primary osteoarthritis, right knee; F32.A Depression, unspecified; Z86.16 Personal history of COVID-19; Z85.828 Personal history of other malignant neoplasm of skin; Z87.891 Personal history of nicotine dependence; Z98.49 Cataract extraction status, unspecified eye; Z79.82 Long term (current) use of aspirin; Z79.899 Other long term (current) drug therapy
CPT/HCPCS: 36415; 70450; 71045; 80053; 81003; 85025; 93005; 99284